=== PATIENT | female | born 1995 | race Caucasian/White ===

== ENCOUNTER → 2017-01-04 | Outpatient (REF) | payer OTHER | LOC: M SFHCCLAY 08:48 | PROVIDERS: ATTEND Family Medicine | DX: Z12.4 Encounter for screening for malignant neoplasm of cervix (principal) ==

== ENCOUNTER → 2017-04-18 | Outpatient (CLI) | payer OTHER ==
--- NOTE | 2017-04-18 15:19 | REP ---
Clinical: Dating and viability. Technique: Transabdominal first trimester obstetrical ultrasound with color Doppler evaluation. Findings: Intrauterine is identified. Castine rump length of 19 mm corresponds to 8 weeks 3 days gestational age. No cardiac activity is appreciated and findings are compatible with demise. Impression: Findings compatible with demise at 8 weeks 3 days gestational age. Signed by Jayjay Harris MD 04/18/2017 03:10 P
== END ==
LOC: M RAD 14:22
PROVIDERS: ATTEND Family Medicine
DX: N91.2 Amenorrhea, unspecified (principal)

== ENCOUNTER → 2017-04-26 | Outpatient (REF) | payer OTHER ==
[2017-04-26 17:35] LABS: PROLACTIN 20.7 NG/ML
== END ==
LOC: M SFHCCLAY 13:38
PROVIDERS: ATTEND Family Medicine
DX: O03.9 Complete or unspecified spontaneous abortion without complication (principal)

== ENCOUNTER → 2017-05-02 | Outpatient (REF) | payer OTHER ==
[2017-05-02 17:35] LABS: PROLACTIN 12.4 NG/ML
== END ==
LOC: M SFHCCLAY 12:06
PROVIDERS: ATTEND Family Medicine
DX: O03.9 Complete or unspecified spontaneous abortion without complication (principal)

== ENCOUNTER 2017-05-23 13:02 | Emergency (ER) | payer OTHER ==
[2017-05-23 17:31] LABS: BASO % 0.3 % (0.0-1.0); EOS # 0.1 10^3/uL (0.0-0.50); EOS % 0.6 % (0.0-3.0); HEMATOCRIT 43.4 % (36.0-47.0); HEMOGLOBIN 14.7 g/dl (12.0-16.0); IMMATURE GRANULOCYTE # 0.1 10^3/uL (0-0); IMMATURE GRANULOCYTE % 0.6 % (0-0); LYMPH # 2.6 10^3/uL (1.5-6.5); LYMPH % 25.3 % (24.0-44.0); MEAN CORPUSCULAR HEMOGLOBIN 30.9 pg (27.0-33.0); MEAN CORPUSCULAR HGB CONC 33.9 g/dl (32.0-36.5); MEAN CORPUSCULAR VOLUME 91.4 fl (80.0-96.0); MONO # 0.6 10^3/uL (0.0-0.8); MONO % 5.8 % (0.0-5.0); NEUTROPHILS # 6.9 10^3/uL (1.8-7.7); NEUTROPHILS % 67.4 % (36.0-66.0); PLATELET COUNT, AUTOMATED 269 10^3/uL (150-450); RED BLOOD COUNT 4.75 10^6/uL (4.00-5.40); WHITE BLOOD COUNT 10.3 10^3/uL (4.0-10.0)
[2017-05-23 17:37] LABS: APPEARANCE, URINE CLOUDY (CLEAR); BACTERIA, URINE AUTO 3+ (NEGATIVE); BILIRUBIN, URINE AUTO NEGATIVE (NEGATIVE); BLOOD, URINE BLOOD 3+ (NEGATIVE); COLOR, URINE RED (YELLOW); GLUCOSE, URINE (UA) AUTO NEGATIVE (NEGATIVE); KETONE, URINE AUTO NEGATIVE (NEGATIVE); LEUKOCYTE ESTERASE, URINE AUTO 2+ (NEGATIVE); MUCUS, URINE MODERATE (NEGATIVE); NITRITE, URINE AUTO NEGATIVE (NEGATIVE); PROTEIN, URINE AUTO 2+ mg/dL (NEGATIVE); RBC, URINE AUTO TNTC /HPF (0-3); SPECIFIC GRAVITY URINE AUTO 1.026 (1.002-1.035); SQUAMOUS EPITHELIAL CELL UR AU 12 /HPF (0-6); UROBILINOGEN, URINE AUTO 0.2 mg/dL (0.0-2.0); WBC, URINE AUTO 167 /HPF (0-3)
[2017-05-23 18:02] LABS: ANION GAP 11 MEQ/L (8-16); BLOOD UREA NITROGEN 12 MG/DL (7-18); CALCIUM LEVEL 8.6 MG/DL (8.5-10.1); CARBON DIOXIDE LEVEL 27 MEQ/L (21-32); CHLORIDE LEVEL 105 MEQ/L (98-107); CREATININE FOR GFR 0.74 MG/DL (0.55-1.02); GLOMERULAR FILTRATION RATE > 60.0 (>60); GLUCOSE, FASTING 79 MG/DL (70-105); HCG, SERUM QUANTITATIVE 31 MIU/ML; POTASSIUM SERUM 3.8 MEQ/L (3.5-5.1); SODIUM LEVEL 143 MEQ/L (136-145)
[2017-05-23] MEDS: NITROFURANTOIN (MACROBID) 100 MG CAP PO (19:15)
== END 2017-05-23 19:22 | disposition home or self-care (01) ==
LOC: M ED 13:02
DX: O03.9 Complete or unspecified spontaneous abortion without complication (principal); O23.40 Unspecified infection of urinary tract in pregnancy, unspecified trimester; Z88.1 Allergy status to other antibiotic agents; Z3A.00 Weeks of gestation of pregnancy not specified
CPT/HCPCS: 76856

== ENCOUNTER → 2017-05-26 | Outpatient (REF) | payer OTHER ==
[2017-05-26 09:03] LABS: FETAL SCREEN PROF. 1
== END ==
LOC: M SFHCCLAY 08:39
DX: N93.9 Abnormal uterine and vaginal bleeding, unspecified (principal)
CPT/HCPCS: J2790

== ENCOUNTER → 2017-07-28 | Outpatient (REF) | payer OTHER ==
[2017-07-29 11:14] LABS: BASO % 0.3 % (0.0-1.0); EOS % 0.4 % (0.0-3.0); HEMATOCRIT 39.4 % (36.0-47.0); HEMOGLOBIN 13.4 g/dl (12.0-16.0); IMMATURE GRANULOCYTE % 0.4 % (0-3.0); LYMPH # 2.3 10^3/uL (1.5-6.5); LYMPH % 23.9 % (24.0-44.0); MEAN CORPUSCULAR HEMOGLOBIN 30.7 pg (27.0-33.0); MEAN CORPUSCULAR VOLUME 90.4 fl (80.0-96.0); MONO # 0.5 10^3/uL (0.0-0.8); MONO % 4.8 % (0.0-5.0); NEUTROPHILS # 6.9 10^3/uL (1.8-7.7); NEUTROPHILS % 70.2 % (36.0-66.0); PLATELET COUNT, AUTOMATED 274 10^3/uL (150-450); RED BLOOD COUNT 4.36 10^6/uL (4.00-5.40); RED CELL DISTRIBUTION WIDTH 11.7 % (11.5-14.5); WHITE BLOOD COUNT 9.8 10^3/uL (4.0-10.0)
[2017-07-29 11:36] LABS: ALBUMIN/GLOBULIN RATIO 1.18 (1.00-1.93); ALKALINE PHOSPHATASE 57 U/L (45-117); ALT/SGPT 26 U/L (12-78); ANION GAP 8 MEQ/L (8-16); AST/SGOT 18 U/L (7-37); BILIRUBIN,TOTAL 0.2 MG/DL (0.2-1.0); BLOOD UREA NITROGEN 14 MG/DL (7-18); CALCIUM LEVEL 8.7 MG/DL (8.5-10.1); CARBON DIOXIDE LEVEL 27 MEQ/L (21-32); CHLORIDE LEVEL 106 MEQ/L (98-107); CHOLESTEROL LEVEL 189 MG/DL (<200); CHOLESTEROL RISK RATIO 3.098 (<5); CREATININE FOR GFR 0.76 MG/DL (0.55-1.30); FERRITIN 48 NG/ML (8-252); FREE T4 1.13 NG/DL (0.76-1.46); GLOMERULAR FILTRATION RATE > 60.0 (>60); GLUCOSE, FASTING 82 MG/DL (70-100); HDL CHOLESTEROL 61 MG/DL (>40); IRON (FE) 40 UG/DL (50-170); NON-HDL-C 128 MG/DL; PERCENT SATURATION 10.6 % (13.2-45.0); POTASSIUM SERUM 3.9 MEQ/L (3.5-5.1); SODIUM LEVEL 141 MEQ/L (136-145); TOTAL IRON BINDING CAPACITY 376 UG/DL (250-450); TOTAL PROTEIN 7.4 GM/DL (6.4-8.2); TRIGLYCERIDES LEVEL 95 MG/DL (<150)
[2017-07-29 12:22] LABS: TOTAL 25(OH) VITAMIN D 14.3 NG/ML (30.0-100.0)
== END ==
LOC: M SFHCCLAY 16:08
DX: R53.83 Other fatigue (principal); Z13.220 Encounter for screening for lipoid disorders; R61 Generalized hyperhidrosis
CPT/HCPCS: 83550

== ENCOUNTER → 2018-01-05 | Outpatient (REF) | payer OTHER ==
[2018-01-06 13:39] LABS: CHLAMYDIA DNA AMPLIFICATION NEGATIVE (NEGATIVE); GC DNA AMPLIFICATION NEGATIVE (NEGATIVE)
== END ==
LOC: M SFHCCLAY 14:31
DX: Z12.4 Encounter for screening for malignant neoplasm of cervix (principal)
CPT/HCPCS: 87591

== ENCOUNTER → 2018-01-30 | Outpatient (CLI) | payer OTHER | LOC: M CLY 09:47 | DX: M54.2 Cervicalgia (principal); M41.9 Scoliosis, unspecified | CPT/HCPCS: 72050 ==

== ENCOUNTER → 2018-05-31 | Outpatient (REF) | payer OTHER ==
[~2018-05-31] MED LIST: MACR100C43 PO
== END ==
LOC: M SFHCCLAY 17:13
PROVIDERS: ATTEND Nurse Practitioner Family
DX: J02.9 Acute pharyngitis, unspecified (principal)

== ENCOUNTER → 2018-09-14 | Outpatient (REF) | payer OTHER ==
[2018-09-14 19:31] LABS: ALBUMIN 4.1 GM/DL (3.2-5.2); ALT/SGPT 35 U/L (12-78); BILIRUBIN,TOTAL 0.4 MG/DL (0.2-1.0); BLOOD UREA NITROGEN 15 MG/DL (7-18); CALCIUM LEVEL 8.8 MG/DL (8.5-10.1); CARBON DIOXIDE LEVEL 29 MEQ/L (21-32); CHLORIDE LEVEL 104 MEQ/L (98-107); CHOLESTEROL LEVEL 193 MG/DL (<200); CHOLESTEROL RISK RATIO 3.784 (<5); CREATININE FOR GFR 0.83 MG/DL (0.55-1.30); FREE T4 0.98 NG/DL (0.76-1.46); GLOMERULAR FILTRATION RATE > 60.0 (>60); GLUCOSE, FASTING 81 MG/DL (70-100); HDL CHOLESTEROL 51 MG/DL (>40); LDL CHOLESTEROL 115.4 MG/DL (<100); NON-HDL-C 142 MG/DL; POTASSIUM SERUM 4.3 MEQ/L (3.5-5.1); SODIUM LEVEL 140 MEQ/L (136-145); TOTAL PROTEIN 7.3 GM/DL (6.4-8.2); TRIGLYCERIDES LEVEL 133 MG/DL (<150)
[2018-09-14 19:39] LABS: HEMOGLOBIN A1c 4.8 %
[2018-09-14 19:40] LABS: BASO % 0.2 % (0.0-1.0); EOS # 0.1 10^3/uL (0.0-0.50); EOS % 0.6 % (0.0-3.0); HEMATOCRIT 42.6 % (36.0-47.0); LYMPH # 1.9 10^3/uL (1.5-6.5); LYMPH % 18.8 % (24.0-44.0); MEAN CORPUSCULAR HEMOGLOBIN 30.8 pg (27.0-33.0); MEAN CORPUSCULAR HGB CONC 32.9 g/dl (32.0-36.5); MEAN CORPUSCULAR VOLUME 93.6 fl (80.0-96.0); MONO # 0.7 10^3/uL (0.0-0.8); MONO % 6.8 % (0.0-5.0); NEUTROPHILS # 7.5 10^3/uL (1.8-7.7); NEUTROPHILS % 73.2 % (36.0-66.0); PLATELET COUNT, AUTOMATED 253 10^3/uL (150-450); RED BLOOD COUNT 4.55 10^6/uL (4.00-5.40); WHITE BLOOD COUNT 10.3 10^3/uL (4.0-10.0)
== END ==
LOC: M SFHCCLAY 10:38
PROVIDERS: ATTEND Nurse Practitioner Family
DX: F41.8 Other specified anxiety disorders (principal); L68.0 Hirsutism; L70.9 Acne, unspecified; L30.9 Dermatitis, unspecified; E66.9 Obesity, unspecified

== ENCOUNTER → 2019-01-31 | Outpatient (CLI) | payer OTHER ==
--- NOTE | 2019-02-06 20:00 | SLEEPHOME ---
DATE OF PROCEDURE: 01/31/2019 Ordered by: Dr. Misael Magana Diagnostic home sleep testing was performed due to concern for the obstructive sleep apnea syndrome in this patient with a history of snoring. For testing, a nocturnal T3 respiratory monitoring device was used. Continuous record was made of pulse, oxygen saturation, airflow, chest, abdominal strain and body position. 9 hours and 59 minutes of data were reviewed. There were 6 hours and 55 minutes marked as time in bed. During the interval marked time in bed there only 11 respiratory events identified of 10 seconds in duration or greater for a respiratory event index of 1.6. There was snoring noted throughout the study. Baseline oxygen saturation was 91%. There was one brief artifactual change in the pulse ox probe, otherwise saturations remained 90% plus. Testing was performed in both the supine and nonsupine positions. IMPRESSION Normal diagnostic home sleep test with snoring.
== END ==
LOC: M SLEEP HO 09:55
PROVIDERS: ATTEND Internal Medicine Cardiovascular Disease
DX: R06.83 Snoring (principal)

== ENCOUNTER → 2019-04-16 | Outpatient (REF) | payer OTHER | LOC: M LABDRAWC 16:05 | PROVIDERS: ATTEND Internal Medicine Cardiovascular Disease | DX: I49.3 Ventricular premature depolarization (principal) ==

== ENCOUNTER → 2019-05-11 | Outpatient (CLI) | payer OTHER ==
--- NOTE | 2019-05-11 10:25 | REP ---
Right upper quadrant sonography: History: Abdominal bloating and discomfort. Question history of biliary pancreatitis. Comparison study: No comparison study. Findings: Scanning through the right upper quadrant of the abdomen demonstrates a normal sized, thin-walled gallbladder without evidence of stone or polyp. Common bile duct is normal measuring 0.4 cm in greatest diameter. No focal liver lesion is seen. Liver size is normal. No pancreatic abnormality is observed. No right renal abnormality is seen. There is no evidence of ascites. The right kidney measures 11.4 x 6.2 x 4.4 cm. Impression: Negative right upper quadrant sonography. Electronically Signed by Hector Apple MD 05/11/2019 10:16 A
== END ==
LOC: M RAD 08:16
PROVIDERS: ATTEND Internal Medicine Gastroenterology
DX: R10.13 Epigastric pain (principal)

== ENCOUNTER → 2019-11-27 | Outpatient (REF) | payer OTHER ==
[2019-11-27 17:28] LABS: HEMATOCRIT 39.5 % (36.0-47.0); HEMOGLOBIN 13.2 g/dl (12.0-15.5); MEAN CORPUSCULAR HEMOGLOBIN 31.2 pg (27.0-33.0); MEAN CORPUSCULAR HGB CONC 33.4 g/dl (32.0-36.5); MEAN CORPUSCULAR VOLUME 93.4 fl (80.0-96.0); PLATELET COUNT, AUTOMATED 237 10^3/uL (150-450); RED BLOOD COUNT 4.23 10^6/uL (4.00-5.40); WHITE BLOOD COUNT 12.8 10^3/uL (4.0-10.0)
[2019-11-27 17:44] LABS: GLUCOSE CHALLENGE TEST 1 HOUR 110 MG/DL (LESS THAN 140)
[2019-11-27 18:37] LABS: HEMOGLOBIN A1c 4.7 %
[2019-11-27 19:39] LABS: CHLAMYDIA DNA AMPLIFICATION NEGATIVE (NEGATIVE); GC DNA AMPLIFICATION NEGATIVE (NEGATIVE)
[2019-11-28 10:52] LABS: HEPATITIS C VIRUS ABY INDEX 0.1 INDEX (<0.8); HIV 1&2 SCREEN CENTAUR NEGATIVE (NEGATIVE)
== END ==
LOC: M PLALAB 13:56
PROVIDERS: ATTEND Advanced Practice Midwife
DX: Z34.01 Encounter for supervision of normal first pregnancy, first trimester (principal)

== ENCOUNTER → 2020-02-20 | Outpatient (CLI) | payer OTHER ==
--- NOTE | 2020-02-27 09:55 | REP ---
OBSTETRIC SONOGRAPHY HISTORY: Supervision of for anatomy. FINDINGS: Scanning through the gravid uterus demonstrates a single intrauterine gestation in a transverse, head to the maternal right lie. Placenta is anterior grade 0 without evidence of previa. Amniotic fluid is subjectively normal. heart rate is recorded at 149 beats per minute. Three vessel umbilical cord is observed. Exam quality is inhibited to some degree by maternal body habitus. Facial profile, nose and lips, four chamber heart and outflow tract views are less than optimally seen due to transverse lie and maternal body habitus. The following anatomic structures are identified and felt to be unremarkable: cranium and intracranial anatomy, diaphragm, left-sided stomach, right and left kidney, urinary bladder, spine, upper and lower extremities. BIOMETRY CHART: BPD 4.6 cm 19 weeks 6 days Head circumference 16.9 cm 19 weeks 4 days Abdominal circumference 13.9 cm 19 weeks 2 days Femur length 3.0 cm 19 weeks 1 day Humeral length 2.9 cm 19 weeks 2 days AC/HC ratio 1.22 Normal Cephalic index 0.76 Normal Estimated weight 282 grams, 0 pounds 9 ounces, 37th percentile for 19 weeks 3 days. IMPRESSION: Viable single intrauterine gestation at 19 weeks 3 days by todays composite sonographic criteria. Estimated date of delivery (TRINIDAD) by todays sonography 07/13/2020. anatomic survey is less than complete as above MTDD
== END ==
LOC: M WHC 13:37
PROVIDERS: ATTEND Advanced Practice Midwife
DX: Z34.82 Encounter for supervision of other normal pregnancy, second trimester (principal); Z3A.19 19 weeks gestation of pregnancy

== ENCOUNTER → 2020-03-11 | Outpatient (CLI) | payer OTHER ==
--- NOTE | 2020-03-11 11:22 | REP ---
INDICATION: F/U ANATOMY. COMPARISON: 02/20/2020 TECHNIQUE: Real-time sonographic evaluation of the gravid uterus performed. FINDINGS: Scanning through the gravid uterus demonstrates a viable single intrauterine gestation in cephalic lie. Estimated gestational age is 22 weeks 2 days, EDC 05/12/2021. Today's measurements indicate appropriate growth. motion is observed and heart rate is recorded at 151 beats per minute. An anterior placenta is seen, grade 2, without evidence of placenta previa. Oval hypoechoic area in the placenta measures 3.8 x 1.3 x 3.2 cm likely a venous Pathak. Amniotic fluid is subjectively normal. Closed cervical length is measured at 3.3 cm transabdominally. No extrauterine abnormality is observed. The following anatomic structures are identified and felt to be sonographically unremarkable: cranium, nose and lips, right ventricular outflow tract , left-sided stomach, three-vessel umbilical cord, kidneys and bladder, spine. Once again profile is not well seen. Four-chamber heart and left ventricular outflow tract are documented, there are couple of echogenic foci in the left ventricle likely related to chordae tendineae. Biometry chart: BPD: 56 mm, 23 weeks 0 days, 69th percentile. HC: 207 mm, 22 weeks 5 days, 64th percentile AC 176 mm: 22 weeks 3 days, 54th percentile Femur length: 39 mm, 22 weeks 3 days, 53rd percentile HC to AC ratio: 1.18, normal range 1.04-1.23. Estimated weight: 509 G, 54th percentile. IMPRESSION: Viable single intrauterine gestation at 22 weeks 2 days by today's composite sonographic criteria. Anatomy as above. <Electronically signed by Jeremy Natarajan > 03/11/20 [id number]
== END ==
LOC: M WHC 09:11
PROVIDERS: ATTEND Advanced Practice Midwife
DX: Z34.02 Encounter for supervision of normal first pregnancy, second trimester (principal); Z3A.22 22 weeks gestation of pregnancy

== ENCOUNTER → 2020-04-08 | Outpatient (CLI) | payer OTHER ==
--- NOTE | 2020-04-09 04:22 | REP ---
INDICATION: F/U ANATOMY COMPARISON: 03/11/2020 TECHNIQUE: Transabdominal obstetrical ultrasound with color Doppler evaluation. FINDINGS: Examination demonstrates a single live intrauterine in cephalic presentation. motion is identified by technologist. Placenta is noted anterior and grade 3 with scattered echogenic foci suggesting calcifications. No evidence for placenta previa or abruption. Amniotic fluid volume is normal. Cervix appears closed. Gestational age by LMP 26 weeks 2 days with TRINIDAD 07/13/2020. Gestational age by current measurements 26 weeks 3 days with TRINIDAD 07/12/2020. FHR equals 150 beats per minute. Estimated weight 1017 grams (69thpercentile). Anatomical assessment demonstrates normal appearance to the facial features. Small echogenic foci within the left cardiac ventricle are identified which may represent prominent chordae tendineae. IMPRESSION: 1. Grade 3 placenta with scattered placental calcifications suggested. Previously noted venous Pathak currently measures approximately 1.7 x 0.8 x 0.9 cm. 2. Small echogenic foci within the left cardiac ventricle again identified and likely represent prominent chordae tendinae. <Electronically signed by Jayjay Harris > 04/09/20 [id number]
== END ==
LOC: M WHC 11:03
PROVIDERS: ATTEND Advanced Practice Midwife
DX: Z34.82 Encounter for supervision of other normal pregnancy, second trimester (principal); Z3A.26 26 weeks gestation of pregnancy

== ENCOUNTER → 2020-05-01 | Outpatient (REF) | payer OTHER ==
[2020-05-01 13:52] LABS: HEMATOCRIT 36.6 % (36.0-47.0); MEAN CORPUSCULAR HEMOGLOBIN 32.2 pg (27.0-33.0); MEAN CORPUSCULAR HGB CONC 32.8 g/dl (32.0-36.5); MEAN CORPUSCULAR VOLUME 98.1 fl (80.0-96.0); PLATELET COUNT, AUTOMATED 195 10^3/uL (150-450); RED BLOOD COUNT 3.73 10^6/uL (4.00-5.40); WHITE BLOOD COUNT 11.7 10^3/uL (4.0-10.0)
== END ==
LOC: M PLALAB 09:11
PROVIDERS: ATTEND Advanced Practice Midwife
DX: Z34.82 Encounter for supervision of other normal pregnancy, second trimester (principal); Z3A.00 Weeks of gestation of pregnancy not specified
CPT/HCPCS: 36415; 82950; 85027; 86850; 86900; 86901; J2790

== ENCOUNTER → 2020-06-10 | Outpatient (REF) | payer OTHER | LOC: M PLALAB 15:12 | PROVIDERS: ATTEND Obstetrics & Gynecology | DX: Z3A.35 35 weeks gestation of pregnancy (principal) ==

== ENCOUNTER → 2020-06-12 | Outpatient (REF) | payer OTHER | LOC: M PLALAB 10:52 | PROVIDERS: ATTEND Obstetrics & Gynecology | DX: Z3A.35 35 weeks gestation of pregnancy (principal) ==

== ENCOUNTER 2020-06-25 19:22 | Inpatient (IN) | payer OTHER ==
[2020-06-25] VITALS (12 sets, daily range): BP systolic 125–186; BP diastolic 71–105
[~2020-06-25] VITALS: Ht 165.1 cm; Wt 106.5 kg
[2020-06-25] MEDS ORDERED: LACTATED RINGER'S 1000 ML IV STA (20:25)
[2020-06-25] MEDS ORDERED: PENICILLIN G POTASSIUM IV 5 MU in D5W MINI-BAG PLUS 100 ML IV STA (20:25)
[2020-06-25] MEDS ORDERED: LR 1,000 ML IV SCH (20:25)
--- OUTSIDE RECORDS SUMMARY | 2020-06-25 20:26 | CCD ---
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 Role Phone EliuConor Unavailable PROBLEMS Type Condition ICD9-CM Code [id number] Code Onset Dates Condition S tatus SNOMED Code Notes Problem Eczema, unspecified type L30.9 Active 6799352 0 Problem Acne vulgaris L70.0 Active 67788124 Problem Folliculitis L73.9 Active 42968298 Problem Vitamin D deficiency E55.9 Active 59503912 Problem Elevated LDL cholesterol level E78.00 Active 4 33626875 Problem Premature ventricular contraction I49.3 Active 91862051 Problem Obesity complicating in first trimester O99.21 1 Active Problem Vaginal bleeding N93.9 Active 793032348 Problem Supervision of other normal Z34.80 Ac tive 351058805 Problem Amenorrhea N91.2 Active 31806178 Problem Depression with anxiety F41.8 Active 70063871 Problem Obesity (BMI 30.0-34.9) E66.9 Active 76673293 1 Problem Episodic tension-type headache, not intractable G4 4.219 Active 419018829 Problem Cardiac arrhythmia, unspecified cardiac arrhythmia type I49.9 Active 828107683 ALLERGIES Allergen (clinical drug ingredient) Drug/Non Drug Allergy do cumented on EMR Reaction Allergy Type Onset Date Status sulfamethoxazole / trimethoprim Bactrim([facility] Code:[address]-53) Rash Drug Allergy Active ENCOUNTERS from 1993 to 2020-06-09 Encounter Location Date Provider Diagnosis [facility] [address] [place] [address] 13 May Conor Nowak Unspecified nonsuppurative otitis media, left ear H65.92 IMMUNIZATIONS Vaccine Route Administration Date Status RHo (D) Immune Globulin 300mcg/1.5mL (RhoGAM) IM Intramuscular J an 2020 Administered RHo (D) Immune Globulin 300mcg/1.5mL (RhoGAM) IM Intramuscular J an 2017 Administered Influenza (6mo & up) Fluzone Unknown Apr 04, 2017 Ref used SOCIAL HISTORY Tobacco Use: Social History Observation Description Date Details (start date - stop date) Never Smoker Sex Assigned At : Social History Observation Description Sex Assigned At Unknown Education: Question Answer Notes Level of Education: Finished High School Audit Question Answer Notes Total Score: 1 Interpretation: Alcohol Education Language: Question Answer Notes Languages spoken: Barbadian Jewish: Question Answer Notes Jewish 99 Other Sexual Hx: Question Answer Notes Had sex in the last 12 months (vaginal, oral, or anal)? Yes with Men only Drug and Alcohol Question Answer Notes Total Score: 0 Interpretation: No problems reported Alcohol Screening: Question Answer Notes Did you have a drink containing alcohol in the past year? Ye s Points 2 Interpretation Negative How often did you have six or more drinks on one occas ion in the past year? Never (0 points) How many drinks did you have on a typica l day when you were drinking in the past year? 1 or 2 (0 points) How often did you have a drink containing alcohol in t he past year? Two to four times a month (2 points) BMI Care Goal Follow-Up Question Answer Notes Above Normal BMI Follow-Up Dietary management educatio n, guidance, and counseling Tobacco Use: Question Answer Notes Are you a: never smoker REASON FOR REFERRAL No Information VITAL SIGNS Weight 227 lbs May, Height 66 in May, BMI 36.63 kg/m2 May, Heart Rate 114 /min May, Respiratory Rate 18 /min May, Temperature 98.5 degrees Fahrenheit May, Oximetry 99 May, Blood pressure systolic 119 mm Hg May, Blood pressure diastolic 79 mm Hg May, MEDICATIONS Medication SIG (Take, Route, Frequency, Duration) Notes Start Da te End Date Status Omeprazole 20 MG 1 capsule 30 minutes before morning meal Orally Once a day for 30 day(s) Apr, Not-Taking Vitamins 28-0.8 MG 1 tablet Orally Once a day Active PROCEDURES No Information RESULTS No Results REASON FOR VISIT left ear pain MEDICAL (GENERAL) HISTORY Type Description Date Medical History 10/2015 Medical History Spontaneous 03/2017 Medical History eczema Surgical History No know Surgical history Hospitalization History [facility] ER-Cellulitis [facility] face 03/11/16 [facility] History [facility] abd pain/ fever 09/2017 Hospitalization History pancreatitis Goals Section No Information Health Concerns No Information MEDICAL EQUIPMENT No Information MENTAL STATUS No Information FUNCTIONAL STATUS No Information ASSESSMENTS Encounter Date Diagnosis Assessment Notes Treatment Notes Treatm ent Clinical Notes May, Unspecified nonsuppurative o titis media, left ear (ICD-10 - H65.92) You have serous otitis media at this time. This condition is usually caused from postnasal drip from environmental triggers, irritants, or sickness. The eustachian tube pulls fluid from your throat which then does not drain like it is supposed to and the fuid becomes trapped behind the eardrum. Symptoms include pressure, pain, pain that radiates into the throat, decreased hearing, and sometimes dizziness with movement of the head. Treatment involves addressing the underlying problem. Please consult the bqoj-hjx-dezghat medication list that was given to bite or senior software test engineer to see what decongestant medication you can take to help with the problem. Please don't take a medication that is not on the list without consulting a healthcare provider. May, Other Medication/s di scussed with patient and questions answered. RTC as needed for worsening or unresolved symptoms. Patient states understanding and agreement with this plan. PLAN OF TREATMENT Treatment Notes Assessment Notes Clinical Notes Unspecified nonsuppurative otitis media, left ear You have serous otitis media at this time. This condition is usually caused from postnasal drip from environmental triggers, irritants, or sickness. The eustachian tube pulls fluid from your throat which then does not drain like it is supposed to and the fuid becomes trapped behind the eardrum. Symptoms include pressure, pain, pain that radiates into the throat, decreased hearing, and sometimes dizziness with movement of the head. Treatment involves addressing the underlying problem. Please consult the ixdz-osv-hmturpm medication list that was given to bite or senior software test engineer to see what decongestant medication you can take to help with the problem. Please don't take a medication that is not on the list without consulting a healthcare provider. Next Appt Details 2 - 3 Days unless improving Reason: Provider Name:Lisha Contreras, 2020-05 10:00:00 AM, [address] [place], [address], Insurance Providers Payer Name Payer Address Payer Phone Insured Name Patient Relati onship to Insured Coverage Start Date Coverage End Date [facility] [employer] [facility] [address] [facility] [phone] MIKE GREGORY self
--- OUTSIDE RECORDS SUMMARY | 2020-06-25 20:26 | CCD ---
Author Author [facility] Organization [facility] Address Unknown Phone Unavailable Care Team Providers Care Equipment Tech Name Role Phone Radha Ortega Unavailable PROBLEMS Type Condition ICD9-CM Code [id number] Code Onset Dates Condition S tatus SNOMED Code Notes Problem Eczema, unspecified type L30.9 Active 0510036 0 Problem Acne vulgaris L70.0 Active 81594391 Problem Folliculitis L73.9 Active 61204038 Problem Vitamin D deficiency E55.9 Active 26959058 Problem Elevated LDL cholesterol level E78.00 Active 4 25939392 Problem Premature ventricular contraction I49.3 Active 37592433 Problem Obesity complicating in first trimester O99.21 1 Active Problem Vaginal bleeding N93.9 Active 624429465 Problem Supervision of other normal Z34.80 Ac tive 714292906 Problem Amenorrhea N91.2 Active 27375916 Problem Depression with anxiety F41.8 Active 79030094 Problem Obesity (BMI 30.0-34.9) E66.9 Active 45274891 1 Problem Episodic tension-type headache, not intractable G4 4.219 Active 973926529 Problem Cardiac arrhythmia, unspecified cardiac arrhythmia type I49.9 Active 268411472 ALLERGIES Allergen (clinical drug ingredient) Drug/Non Drug Allergy do cumented on EMR Reaction Allergy Type Onset Date Status sulfamethoxazole / trimethoprim Bactrim([facility] Code:[address]-52) Rash Drug Allergy Active ENCOUNTERS from 1993 to 2020-04-01 Encounter Location Date Provider Diagnosis [facility] [address] [place] [address] Feb, Radha Vallandigham 21 weeks gestatio n of Z3A.21 ; Disease of nervous system affecting in second trimester O99.352 and Tension headache G44.209 IMMUNIZATIONS Vaccine Route Administration Date Status RHo [...] Education Language: Question Answer Notes Languages spoken: Yoruba Denominational: Question Answer Notes Denominational 99 Other Sexual Hx: Question Answer Notes [...] FOR REFERRAL No Information VITAL SIGNS Weight 212 lbs Feb, Height 66 in Feb, BMI 34.218 kg/m2 Feb, Blood pressure systolic 126 mm Hg Feb, Blood pressure diastolic 78 mm Hg Feb, MEDICATIONS Medication SIG (Take, Route, Frequency, Duration) Start Date En d Date Status Vitamins 28-0.8 MG 1 tablet Orally Once a day Active PROCEDURES No Information RESULTS Component Value Reference Range WWBC OBS FOLLOW UP OR REPEAT Reviewed date:03/12/2020 08:25:29 Interpretation: Performing Lab:[facility],[address]], ,[place] [address] REASON FOR VISIT 4 WK PN MEDICAL (GENERAL) HISTORY Type Description Date Medical History 10/2015 Medical History Spontaneous 03/2017 Medical History eczema Surgical History No Surgical history information Hospitalization History [facility]-Cellulitis [facility] face 03/11/16 Hospitalization History [facility]- abd pain/ fever 09/2017 Hospitalization History pancreatitis Goals Section No Information Health Concerns No Information MEDICAL EQUIPMENT No Information MENTAL STATUS No Information FUNCTIONAL STATUS No Information ASSESSMENTS Encounter Date Diagnosis Notes Feb, Disease of nervous system af fecting in second trimester (ICD-10 - O99.352) Feb, 21 weeks gestation of (ICD-10 - Z3A.21) Feb, Tension headache (ICD-10 - G44.209) PLAN OF TREATMENT Next Appt Details 4 Weeks Reason:return ob Provider Name:Aracely Carcamo 2020-04-03 09:00:00 AM, [address] [place], [address], Follow Up:4 Weeksreturn ob Insurance Providers Payer Name Payer Address Payer Phone Insured Name Patient Relati onship to Insured Coverage Start Date Coverage End Date [facility] COMM[facility] PLAN [facility] [address] [facility] [phone] MIKE GREGORY self
--- OUTSIDE RECORDS SUMMARY | 2020-06-25 20:26 | CCD ---
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 Role Phone Effie Lomas Unavailable PROBLEMS Type Condition ICD9-CM Code [id number] Code Onset Dates Condition S tatus SNOMED Code Notes Problem Eczema, unspecified type L30.9 Active 7409235 0 Problem Acne vulgaris L70.0 Active 02789560 Problem Folliculitis L73.9 Active 40008983 Problem Vitamin D deficiency E55.9 Active 17708252 Problem Elevated LDL cholesterol level E78.00 Active 4 04282923 Problem Premature ventricular contraction I49.3 Active 86514597 Problem Obesity complicating in first trimester O99.21 1 Active Problem Vaginal bleeding N93.9 Active 645412976 Problem Supervision of other normal Z34.80 Ac tive 705906848 Problem Amenorrhea N91.2 Active 97593037 Problem Depression with anxiety F41.8 Active 89091554 Problem Obesity (BMI 30.0-34.9) E66.9 Active 48833988 1 Problem Episodic tension-type headache, not intractable G4 4.219 Active 153647032 Problem Cardiac arrhythmia, unspecified cardiac arrhythmia type I49.9 Active 711009877 ALLERGIES Allergen (clinical drug ingredient) Drug/Non Drug Allergy do cumented on EMR Reaction Allergy Type Onset Date Status sulfamethoxazole / trimethoprim Bactrim([facility] Code:[address]-30) Rash Drug Allergy Active ENCOUNTERS from 1993 to 2020-06-04 Encounter Location Date Provider Diagnosis [facility] [address] [place] [address] May Effie Lomas IMMUNIZATIONS Vaccine Route Administration Date Status RHo [...] Education Language: Question Answer Notes Languages spoken: Persian Mormon: Question Answer Notes Mormon 99 Other Sexual Hx: Question Answer Notes [...] REASON FOR REFERRAL No Information VITAL SIGNS No information MEDICATIONS Medication SIG (Take, Route, Frequency, Duration) Notes Start Da te End Date Status Omeprazole 20 MG 1 capsule 30 minutes before morning meal Orally Once a day for 30 day(s) Apr, Not-Taking Vitamins 28-0.8 MG 1 tablet Orally Once a day Active PROCEDURES No Information RESULTS No Results REASON FOR VISIT same day MEDICAL (GENERAL) HISTORY Type Description Date Medical History 10/2015 Medical History Spontaneous 03/2017 Medical History eczema Surgical History No know Surgical history Hospitalization History [facility] ER-Cellulitis of face 03/11/16 Hospitalization History [facility] abd pain/ fever 09/2017 Hospitalization History pancreatitis Goals Section No Information Health Concerns No Information MEDICAL EQUIPMENT No Information MENTAL STATUS No Information FUNCTIONAL STATUS No Information ASSESSMENTS No Information PLAN OF TREATMENT Next Appt Details Provider Name:Lisha Contreras, 2020-05 10:00:00 AM, [address] [place], [address], Insurance Providers Payer Name Payer Address Payer Phone Insured Name Patient Relati onship to Insured Coverage Start Date Coverage End Date [facility] [facility] [address] [facility] [phone] MIKE GREGORY self
--- OUTSIDE RECORDS SUMMARY | 2020-06-25 20:26 | CCD ---
Author Author [facility] Organization [facility] Address Unknown Phone Unavailable Care Team Providers Care Research Biostatistician Name Role Phone Lisha Contreras Unavailable PROBLEMS Type Condition ICD9-CM Code [id number] Code Onset Dates Condition S tatus W/U Status Risk SNOMED Code Notes Problem Folliculitis L73.9 Active confirmed 4219330 6 Problem Eczema, unspecified type L30.9 Active confirmed 70825582 Problem Amenorrhea N91.2 Active confirmed 35813794 Problem Acne vulgaris L70.0 Active confirmed 074197 00 Problem Elevated LDL cholesterol level E78.00 Active confir med 079758911 Problem Vaginal bleeding N93.9 Active confirmed 289 471108 Problem Depression with anxiety F41.8 Active confirmed 64123351 Problem Obesity (BMI 30.0-34.9) E66.9 Active confirmed 531714070 Problem Cardiac arrhythmia, unspecified cardiac arrhythmia type I49.9 Active confirmed 445550201 Problem GERD (gastroesophageal reflux disease) K21.9 A ctive confirmed 604893633 Problem Premature ventricular contraction I49.3 Active con firmed 55327108 Problem Obesity E66.9 Active confirmed 897572553 Problem Vitamin D deficiency E55.9 Active confirmed 57570181 Problem Episodic tension-type headache, not intractable G4 4.219 Active confirmed 310851225 Problem Supervision of other normal Z34.80 Ac tive confirm 629262485 Problem Obesity complicating in first trimester O99.211 Active confirmed Problem Obesity complicating in third trimester O99.213 Active confirmed ALLERGIES Allergen (clinical drug ingredient) Drug/Non Drug Allergy do cumented on EMR Reaction Allergy Type Onset Date Status sulfamethoxazole / trimethoprim Bactrim(NDC Code:[address]-26) Rash Drug Allergy Active ENCOUNTERS from 1993 to 2020-06-23 Encounter Location Date Provider Diagnosis [facility] [place] [address] May, Lisha Contreras 35 weeks gestation o f Z3A.35 ; Obesity complicating in third trimester O99.213 ; Obesity E66.9 ; GERD (gastroesophageal reflux disease) K21.9 and Diseases of the digestive system com plicating , third trimester O99.613 IMMUNIZATIONS Vaccine Route Administration Date Status RHo [...] History Observation Description Sex Assigned At Unknown Audit Question Answer Notes Total Score: 1 Interpretation: Alcohol Education Language: Question Answer Notes Languages spoken: Vietnamese Drug and Alcohol Question Answer Notes Total [...] FOR REFERRAL No Information VITAL SIGNS Weight 228 lbs May, Height 66 in May, BMI 36.8 kg/m2 May, Blood pressure systolic 120 mm Hg May, Blood pressure diastolic 82 mm Hg May, MEDICATIONS Medication SIG (Take, Route, Frequency, Duration) Notes Start Da te End Date Status Omeprazole 20 MG 1 capsule 30 minutes before morning meal Orally Once a day for 30 day(s) Apr, Active Vitamins 28-0.8 MG 1 tablet Orally Once a day Active PROCEDURES No Information RESULTS Component Value Reference Range GROUP B STREP CULTURE Reviewed date:06/16/2020 08:18:10 Interpretation: Performing Lab:[facility], [facility] [address] [facility] [address] , ,[place] [address] REASON FOR VISIT 2 WK PN MEDICAL (GENERAL) HISTORY Type Description Date Medical History 10/2015 Medical History Spontaneous 03/2017 Medical History eczema Surgical History No know Surgical history Hospitalization History [facility] ER-Cellulitis of face 03/11/16 Hospitalization History [facility]- abd pain/ fever 09/2017 Hospitalization History pancreatitis Goals Section No Information Health Concerns No Information MEDICAL EQUIPMENT No Information MENTAL STATUS No Information FUNCTIONAL STATUS No Information ASSESSMENTS Encounter Date Diagnosis Assessment Notes Treatment Notes Treatm ent Clinical Notes May, 35 weeks gestation of (ICD-10 - Z3A.35 ) May, Obesity complicating pregnan cy in third trimester (ICD-10 - O99.213) May, Obesity (ICD-10 - E66.9) May, GERD (gastroesophageal reflux disease) (ICD-10 - K21.9) May, Diseases of the digestive sy stem complicating , third trimester (ICD-10 - O99.613) PLAN OF TREATMENT Medication Medication Name Sig Start Date Stop Date Omeprazole 20 MG 1 capsule 30 minutes before morning meal Orally Once a day for 30 day(s) Apr, Next Appt Details 2 Weeks Reason:PN Provider Name:Aracely Carcamo, 2020-06-26 02:20:00 PM, [address] [place], [address], Follow Up:2 WeeksPN Insurance Providers Payer Name Payer Address Payer Phone Insured Name Patient Relati onship to Insured Coverage Start Date Coverage End Date [employer] [facility] [address] [facility] [address] MIKE GREGORY self
--- OUTSIDE RECORDS SUMMARY | 2020-06-25 20:26 | CCD ---
Author Author [facility] Organization [facility] Address Unknown Phone Unavailable Care Team Providers Care Patient Care Manager Name Role Phone Kavon Chalino Unavailable PROBLEMS Type Condition ICD9-CM Code [id number] Code Onset Dates Condition S tatus SNOMED Code Notes Problem Eczema, unspecified type L30.9 Active 7737596 0 Problem Acne vulgaris L70.0 Active 54016848 Problem Folliculitis L73.9 Active 22672558 Problem Vitamin D deficiency E55.9 Active 61229921 Problem Elevated LDL cholesterol level E78.00 Active 4 53627600 Problem Premature ventricular contraction I49.3 Active 57033459 Problem Obesity complicating in first trimester O99.21 1 Active Problem Vaginal bleeding N93.9 Active 020948321 Problem Supervision of other normal Z34.80 Ac tive 250583476 Problem Amenorrhea N91.2 Active 80331157 Problem Depression with anxiety F41.8 Active 79372705 Problem Obesity (BMI 30.0-34.9) E66.9 Active 87365200 1 Problem Episodic tension-type headache, not intractable G4 4.219 Active 915722733 Problem Cardiac arrhythmia, unspecified cardiac arrhythmia type I49.9 Active 275750180 ALLERGIES Allergen (clinical drug ingredient) Drug/Non Drug Allergy do cumented on EMR Reaction Allergy Type Onset Date Status sulfamethoxazole / trimethoprim Bactrim[place] [place] Code:[address]-10) Rash Drug Allergy Active ENCOUNTERS from 1993 to 2020-05-14 Encounter Location Date Provider Diagnosis [facility] [address] [place] [phone] Apr, Chalino Jacobson Encounter for superv ision of other normal in third trimester Z34.83 and 31 weeks gestation of Z3A.31 IMMUNIZATIONS Vaccine Route Administration Date Status RHo [...] 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 Yes with Men only Drug and Alcohol Question Answer Notes Interpretation: No problems reported Total Score: 0 Alcohol Screening: Question Answer Notes Did you [...] FOR REFERRAL No Information VITAL SIGNS Weight 220.0 lbs Apr, Weight-kg 99.79 kg Apr, Height 66 in Apr, BMI 35.509 kg/m2 Apr, Blood pressure systolic 112 mm Hg Apr, Blood pressure diastolic 62 mm Hg Apr, MEDICATIONS Medication SIG (Take, Route, Frequency, Duration) Notes Start Da te End Date Status Vitamins 28-0.8 MG 1 tablet Orally Once a day Active Omeprazole 20 MG 1 capsule 30 minutes before morning meal Orally Once a day for 30 day(s) Apr, Active PROCEDURES No Information RESULTS No Results REASON FOR VISIT 2WK PN MEDICAL (GENERAL) HISTORY Type Description Date Medical History 10/2015 Medical History Spontaneous 03/2017 Medical History eczema Surgical History No know Surgical history Hospitalization History [facility] ER-Cellulitis of face 03/11/16 Hospitalization History [facility]- abd pain/ fever 09/2017 Hospitalization History pancreatitis Goals Section No Information Health Concerns No Information MEDICAL EQUIPMENT No Information MENTAL STATUS No Information FUNCTIONAL STATUS No Information ASSESSMENTS Encounter Date Diagnosis Assessment Notes Treatment Notes Treatm ent Clinical Notes Apr, Encounter for supervision of other normal in third trimester (ICD-10 - Z34.83) Apr, 31 weeks gestation of (ICD-10 - Z3A.31 ) PLAN OF TREATMENT Medication Medication Name Sig Start Date Stop Date Omeprazole 20 MG 1 capsule 30 minutes before morning meal Orally Once a day for 30 day(s) Apr, Next Appt Details 2 Weeks Reason: Provider Name:Aracely Carcamo, 2020-05-29 10:40:00 AM, [address] [place], [address], Insurance Providers Payer Name Payer Address Payer Phone Insured Name Patient Relati onship to Insured Coverage Start Date Coverage End Date [facility] COMMUN[facility] PLAN [facility] [address] [facility] [address] MIKE GREGORY self
--- OUTSIDE RECORDS SUMMARY | 2020-06-25 20:26 | CCD ---
Author Author [facility] Organization [facility] Address Unknown Phone Unavailable Care Team Providers Care Sprinkler Fitter Name Role Phone Aracely Carcamo Unavailable PROBLEMS Type Condition ICD9-CM Code [id number] Code Onset Dates Condition S tatus SNOMED Code Notes Problem Eczema, unspecified type L30.9 Active 2685467 0 Problem Acne vulgaris L70.0 Active 97659333 Problem Folliculitis L73.9 Active 48266438 Problem Vitamin D deficiency E55.9 Active 65168607 Problem Elevated LDL cholesterol level E78.00 Active 4 93275989 Problem Premature ventricular contraction I49.3 Active 68014779 Problem Obesity complicating in first trimester O99.21 1 Active Problem Vaginal bleeding N93.9 Active 307771187 Problem Supervision of other normal Z34.80 Ac tive 730913795 Problem Amenorrhea N91.2 Active 31601451 Problem Depression with anxiety F41.8 Active 25961745 Problem Obesity (BMI 30.0-34.9) E66.9 Active 18329322 1 Problem Episodic tension-type headache, not intractable G4 4.219 Active 933549585 Problem Cardiac arrhythmia, unspecified cardiac arrhythmia type I49.9 Active 283168082 ALLERGIES Allergen (clinical drug ingredient) Drug/Non Drug Allergy do cumented on EMR Reaction Allergy Type Onset Date Status sulfamethoxazole / trimethoprim Bactrim([facility] Code:[address]-03) Rash Drug Allergy Active ENCOUNTERS from 1993 to 2020-06-04 Encounter Location Date Provider Diagnosis [facility] [address] [place] [phone] May, Aracely Carcamo 33 weeks gestation o f Z3A.33 ; Encounter for prophylactic administration of RhoGAM Z29.13 and 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, third trimester, not applicable or unspecified O36.0130 IMMUNIZATIONS Vaccine Route Administration Date Status RHo [...] 1 Language: Question Answer Notes Languages spoken: Lithuanian Taoist: Question Answer Notes Taoist 99 Other Sexual Hx: Question Answer Notes [...] FOR REFERRAL No Information VITAL SIGNS Weight 227.4 lbs May, Height 66 in May, BMI 36.703 kg/m2 May, Blood pressure systolic 124 mm Hg May, Blood pressure diastolic 70 mm Hg May, MEDICATIONS Medication SIG (Take, Route, Frequency, Duration) Notes Start Da te End Date Status Omeprazole 20 MG 1 capsule 30 minutes before morning meal Orally Once a day for 30 day(s) Apr, Not-Taking Vitamins 28-0.8 MG 1 tablet Orally Once a day Active PROCEDURES from 1993 to 2020-06-04 Procedure Date Ordered Result Body Site Injection: RhoGAM 300mcg/1.5mL IM (Rho [D] Immune Globulin H uman) 2020-05-29 N/A RESULTS No Results REASON FOR VISIT 2WK PN MEDICAL (GENERAL) HISTORY Type Description Date Medical History 10/2015 Medical History Spontaneous 03/2017 Medical History eczema Surgical History No know Surgical history Hospitalization History [facility] ER-Cellulitis of face 03/11/16 Hospitalization History [facility]- abd pain/ fever 09/2017 Hospitalization History pancreatitis Goals Section No Information Health Concerns No Information MEDICAL EQUIPMENT No Information MENTAL STATUS No Information FUNCTIONAL STATUS No Information ASSESSMENTS Encounter Date Diagnosis Assessment Notes Treatment Notes Treatm ent Clinical Notes May, 33 weeks gestation of (ICD-10 - Z3A.33 ) May, Encounter for prophylactic a dministration of RhoGAM (ICD-10 - Z29.13) May, Maternal care for anti-D [Rh ] antibodies, third trimester, not applicable or unspecified (ICD-10 - O36.0130) PLAN OF TREATMENT Next Appt Details 2 Weeks Reason: Provider Name:Lisha Contreras, 2020-05 10:00:00 AM, [address] [place], [address], Follow Up:2 Weeksprenatal Insurance Providers Payer Name Payer Address Payer Phone Insured Name Patient Relati onship to Insured Coverage Start Date Coverage End Date [facility] COMM[facility] PLAN [facility] [address] [facility] [address] MIKE GREGORY self
--- OUTSIDE RECORDS SUMMARY | 2020-06-25 20:26 | CCD ---
Author Author [facility] Organization [facility] Address Unknown Phone Unavailable Care Team Providers Care Assistant Front End Manager Name Role Phone Radha Ortega Unavailable PROBLEMS Type Condition ICD9-CM Code [id number] Code Onset Dates Condition S tatus SNOMED Code Notes Problem Eczema, unspecified type L30.9 Active 8410011 0 Problem Acne vulgaris L70.0 Active 09876261 Problem Folliculitis L73.9 Active 90553609 Problem Vitamin D deficiency E55.9 Active 02142063 Problem Elevated LDL cholesterol level E78.00 Active 4 08276566 Problem Premature ventricular contraction I49.3 Active 10480998 Problem Obesity complicating in first trimester O99.21 1 Active Problem Vaginal bleeding N93.9 Active 677420826 Problem Supervision of other normal Z34.80 Ac tive 859822029 Problem Amenorrhea N91.2 Active 16649077 Problem Depression with anxiety F41.8 Active 34667653 Problem Obesity (BMI 30.0-34.9) E66.9 Active 53571756 1 Problem Episodic tension-type headache, not intractable G4 4.219 Active 905782272 Problem Cardiac arrhythmia, unspecified cardiac arrhythmia type I49.9 Active 370155650 ALLERGIES Allergen (clinical drug ingredient) Drug/Non Drug Allergy do cumented on EMR Reaction Allergy Type Onset Date Status sulfamethoxazole / trimethoprim Bactrim([facility] Code:[address]-97) Rash Drug Allergy Active ENCOUNTERS from 1993 to 2020-04-30 Encounter Location Date Provider Diagnosis [facility] [address] [place] [phone] Apr, Radha Vallandigham 29 weeks gestatio n of Z3A.29 ; Other specified related conditions, third trimester O26.893 and Heart burn R12 IMMUNIZATIONS Vaccine Route Administration Date Status RHo [...] Education Language: Question Answer Notes Languages spoken: Georgian Anglican: Question Answer Notes Anglican 99 Other Sexual Hx: Question Answer Notes [...] FOR REFERRAL No Information VITAL SIGNS Weight 220 lbs Apr, Weight-kg 99.79 kg Apr, Height 66 in Apr, BMI 35.509 kg/m2 Apr, Blood pressure systolic 112 mm Hg Apr, Blood pressure diastolic 70 mm Hg Apr, MEDICATIONS Medication SIG (Take, Route, Frequency, Duration) Notes Start Da te End Date Status Vitamins 28-0.8 MG 1 tablet Orally Once a day Active PROCEDURES No Information RESULTS No Results REASON FOR VISIT 4WK PN MEDICAL (GENERAL) HISTORY Type Description Date Medical History 10/2015 Medical History Spontaneous 03/2017 Medical History eczema Surgical History No know Surgical history Hospitalization History [facility] ER-Cellulitis of face 03/11/16 Hospitalization History [facility]- abd pain/ fever 09/2017 Hospitalization History pancreatitis Goals Section No Information Health Concerns No Information MEDICAL EQUIPMENT No Information MENTAL STATUS No Information FUNCTIONAL STATUS No Information ASSESSMENTS Encounter Date Diagnosis Assessment Notes Treatment Notes Treatm ent Clinical Notes Apr, 29 weeks gestation of (ICD-10 - Z3A.29 ) Apr, Other specified re lated conditions, third trimester (ICD- 10 - O26.893) Apr, Heart burn (ICD-10 - R12) PLAN OF TREATMENT Next Appt Details 2 Weeks Reason:return ob Provider Name:Chalino Jacobson, 2020-05-13 0 8:20:00 AM, [address] [place], [address], Follow Up:2 Weeksreturn ob Insurance Providers Payer Name Payer Address Payer Phone Insured Name Patient Relati onship to Insured Coverage Start Date Coverage End Date [facility] COMM[facility] PLAN [facility] [place] [address] [facility] [phone] MIKE GREGORY self
--- OUTSIDE RECORDS SUMMARY | 2020-06-25 20:27 | CCD ---
Author Author [facility] Organization [facility] Address Unknown Phone Unavailable Care Team Providers Care Control Chemist Name Role Phone WOLFENDEN, T BRUNO PA Unavailable Unavailable WOLFENDEN, T BRUNO PA Unavailable Unavailable WOLFENDEN, T BRUON PA Unavailable Unavailable WOLFENDEN, T BRUNO PA Unavailable Unavailable WOLFENDEN, T BRUNO PA Unavailable Unavailable WOLFENDEN, T BRUNO PA Unavailable Unavailable WOLFENDEN, T BRUNO PA Unavailable Unavailable WOLFENDEN, T BRUNO PA Unavailable Unavailable WOLFENDEN, T BRUNO PA Unavailable Unavailable WOLFENDEN, T BRUNO PA Unavailable Unavailable WOLFENDEN, T BRUNO PA Unavailable Unavailable WOLFENDEN, T BRUNO PA Unavailable Unavailable WOLFENDEN, T BRUNO PA Unavailable Unavailable WOLFENDEN, T BRUNO PA Unavailable Unavailable WOLFENDEN, T BRUNO PA Unavailable Unavailable WOLFENDEN, T BRUNO PA Unavailable Unavailable WOLFENDEN, T BRUNO PA Unavailable Unavailable WOLFENDEN, T BRUNO PA Unavailable Unavailable WOLFENDEN, T BRUNO PA Unavailable Unavailable WOLFENDEN, T BRUNO PA Unavailable Unavailable WOLFENDEN, T BRUNO PA Unavailable Unavailable WOLFENDEN, T BRUNO PA Unavailable Unavailable WOLFENDEN, T BRUNO PA Unavailable Unavailable WOLFENDEN, T BRUNO PA Unavailable Unavailable WOLFENDEN, T BRUNO PA Unavailable Unavailable WOLFENDEN, T BRUNO PA Unavailable Unavailable WOLFENDEN, T BRUNO PA Unavailable Unavailable WOLFENDEN, T BRUNO PA Unavailable Unavailable Alberry, D Effie K [employer] PRINCIPAL Unavailable Unavailable Alberry, D Effie K 8 SCHOOL PRINCIPAL Unavailable Unavailable Alberry, D Effie K 8 SCHOOL PRINCIPAL Unavailable Unavailable Alberry, D Effie K 8 SCHOOL PRINCIPAL Unavailable Unavailable Alberry, D Effie K 8 SCHOOL PRINCIPAL Unavailable Unavailable Alberry, D Effie K 8 SCHOOL PRINCIPAL Unavailable Unavailable Alberry, D Effie K 8 SCHOOL PRINCIPAL Unavailable Unavailable Alberry, D Effie K 8 SCHOOL PRINCIPAL Unavailable Unavailable Alberry, D Effie K 8 SCHOOL PRINCIPAL Unavailable Unavailable Alberry, D Effie K 8 SCHOOL PRINCIPAL Unavailable Unavailable Alberry, D Effie K 8 SCHOOL PRINCIPAL Unavailable Unavailable Alberry, D Effie K 8 SCHOOL PRINCIPAL Unavailable Unavailable Alberry, D Effie K 8 SCHOOL PRINCIPAL Unavailable Unavailable Alberry, D Effie K 8 SCHOOL PRINCIPAL Unavailable Unavailable Alberry, D Effie K 8 SCHOOL PRINCIPAL Unavailable Unavailable Alberry, D Effie K 8 SCHOOL PRINCIPAL Unavailable Unavailable Alberry, D Effie K 8 SCHOOL PRINCIPAL Unavailable Unavailable Alberry, D Effie K 8 SCHOOL PRINCIPAL Unavailable Unavailable Alberry, D Effie K 8 SCHOOL PRINCIPAL Unavailable Unavailable Alberry, D Effie K 8 SCHOOL PRINCIPAL Unavailable Unavailable Alberry, D Effie K 8 SCHOOL PRINCIPAL Unavailable Unavailable Alberry, D Effie K 8 SCHOOL PRINCIPAL Unavailable Unavailable Alberry, D Effie K 8 SCHOOL PRINCIPAL Unavailable Unavailable Alberry, D Effie K 8 SCHOOL PRINCIPAL Unavailable Unavailable Alberry, D Effie K 8 SCHOOL PRINCIPAL Unavailable Unavailable Alberry, D Effie K 8 SCHOOL PRINCIPAL Unavailable Unavailable Alberry, D Effie K 8 SCHOOL PRINCIPAL Unavailable Unavailable Alberry, D Effie K 8 SCHOOL PRINCIPAL Unavailable Unavailable Alberry, D Effie K 8 SCHOOL PRINCIPAL Unavailable Unavailable Alberry, D Effie K 8 SCHOOL PRINCIPAL Unavailable Unavailable Alberry, D Effie K 8 SCHOOL PRINCIPAL Unavailable Unavailable Alberry, D Effie K 8 SCHOOL PRINCIPAL Unavailable Unavailable Alberry, D Effie K 8 SCHOOL PRINCIPAL Unavailable Unavailable Alberry, D Effie K 8 SCHOOL PRINCIPAL Unavailable Unavailable Alberry, D Effie K 8 SCHOOL PRINCIPAL Unavailable Unavailable Alberry, D Effie K 8 SCHOOL PRINCIPAL Unavailable Unavailable Alberry, D Effie K 8 SCHOOL PRINCIPAL Unavailable Unavailable Alberry, D Effie K 8 SCHOOL PRINCIPAL Unavailable Unavailable Alberry, D Effie K 8 SCHOOL PRINCIPAL Unavailable Unavailable Alberry, D Effie K 8 SCHOOL PRINCIPAL Unavailable Unavailable Alberry, D Effie K 8 SCHOOL PRINCIPAL Unavailable Unavailable Alberry, D Effie K 8 SCHOOL PRINCIPAL Unavailable Unavailable Alberry, D Effie K 8 SCHOOL PRINCIPAL Unavailable Unavailable Alberry, D Effie K 8 SCHOOL PRINCIPAL Unavailable Unavailable Alberry, D Effie K 8 SCHOOL PRINCIPAL Unavailable Unavailable Alberry, D Effie K 8 SCHOOL PRINCIPAL Unavailable Unavailable Alberry, D Effie K 8 SCHOOL PRINCIPAL Unavailable Unavailable Alberry, D Effie K 8 SCHOOL PRINCIPAL Unavailable Unavailable Kinga BELTRÁN. PHOEBE Unavailable [phone] WERBLIN Z. PHOEBE Unavailable [phone] WERBLIN Z. PHOEBE Unavailable [phone] WERBLINEnzo PHOEBE Unavailable [phone] WERJOSSINKinga. PHOEBE Unavailable [phone] Carol DIOP MD Unavailable Unavailable Carol DIOP MD Unavailable Unavailable Carol DIOP MD Unavailable Unavailable Carol DIOP MD Unavailable Unavailable Carol DIOP MD Unavailable Unavailable Carol DIOP MD Unavailable Unavailable Carol DIOP MD Unavailable Unavailable Carol DIOP MD Unavailable Unavailable Carol DIOP MD Unavailable Unavailable Carol DIOP MD Unavailable Unavailable Carol DIOP MD Unavailable Unavailable Carol DIOP MD Unavailable Unavailable Carol DIOP MD Unavailable Unavailable Carol DIOP MD Unavailable Unavailable Carol DIOP MD Unavailable Unavailable Carol DIOP MD Unavailable Unavailable Carol DIOP MD Unavailable Unavailable Carol DIOP MD Unavailable Unavailable Carol DIOP MD Unavailable Unavailable Carol DIOP MD Unavailable Unavailable Carol DIOP MD Unavailable Unavailable Carol DIOP MD Unavailable Unavailable Carol DIOP MD Unavailable Unavailable Carol DIOP MD Unavailable Unavailable Carol DIOP MD Unavailable Unavailable Carol DIOP MD Unavailable Unavailable Carol DIOP MD Unavailable Unavailable Carol DIOP MD Unavailable Unavailable Carol DIOP MD Unavailable Unavailable Carol DIOP MD Unavailable Unavailable Carol DIOP MD Unavailable Unavailable Carol DIOP MD Unavailable Unavailable Carol DIOP MD Unavailable Unavailable Re-disclosure Warning The records that you are about to access may contain information from federally-assisted alcohol or drug abuse programs. If such information is present, then the following federally mandated warning applies: This information has been disclosed to you from records protected by federal confidentiality rules (42 CFR part 2). The federal rules prohibit you from making any further disclosure of this information unless further disclosure is expressly permitted by the written consent of the person to whom it pertains or as otherwise permitted by 42 CFR part 2. A general authorization for the release of medical or other information is NOT sufficient for this purpose. The Federal rules restrict any use of the information to criminally investigate or prosecute any alcohol or drug abuse patient.The records that you are about to access may contain highly sensitive health information, the redisclosure of which is protected by Article 27-F of the [facility] Public Health law. If you continue you may have access to information: Regarding HIV / AIDS; Provided by facilities licensed or operated by the [facility] Office of Mental Health; or Provided by the [facility] Office for People With Developmental Disabilities. If such information is present, then the following [facility] mandated warning applies: This information has been disclosed to you from confidential records which are protected by state law. State law prohibits you from making any further disclosure of this information without the specific written consent of the person to whom it pertains, or as otherwise permitted by law. Any unauthorized further disclosure in violation of state law may result in a fine or intermediate sentence or both. A general authorization for the release of medical or other information is NOT sufficient authorization for further disc losure. Allergies and Adverse Reactions Type Description Substance Reaction Status Data Source(s ) Drug allergy Bactrim sulfamethoxazole / trimethoprim Rash Ac tive eCW1 (Formerly [facility]) Encounters Encounter Providers Location Date Indications Data Source(s ) ( ESTOB) [facility] [address] [place] [address] 06/12/2020 12:00:00 AM EST eCW1 (Critical access hospital) Outpatient [address] [facility], [facility] [address] 06/04/2020 12:00:00 AM EST eCW1 ([facility]) Unknown [address] [facility] [address] 06/04/2020 12:00:00 AM EST eCW1 ([facility]) ( ESTOB) [facility] Est OB [address] [place] [address] 05/29/2020 12:00:00 AM EST eCW1 ([facility]) ( ESTOB) [facility] Est OB [address] [place] [address] 05/13/2020 12:00:00 AM EST eCW1 ([facility]) ( ESTOB) [facility] Est OB [address] [place] [address] 04/29/2020 12:00:00 AM EST eCW1 ([facility]) ( ESTOB) [facility] Est OB [address] [place] [address] 03/06/2020 12:00:00 AM EDT eCW1 ([facility]) [facility] [address] [facility] [address] 01/08/2020 12:00:00 AM EDT eCW1 ([facility]) ( NEWOB) [facility] New OB Visit [address] [place] [address] 11/27/2019 12:00:00 AM EDT eCW1 ([facility]) Emergency Attender: BRUNO CARRILLO EMERGENCY ROOM-ER 11/21/2019 03:18:00 PM EDT - 11/21/2019 04:55:00 PM EDT [facility] Patient discharged. [facility] [address] [facility] [address] 10/16/2019 12:00:00 AM EDT eCW1 ([facility]) [facility] [address] [facility] [address] 10/04/2019 12:00:00 AM EDT eCW1 ([facility]) [facility] [address] [facility] [address] 06/19/2019 12:00:00 AM EST eCW1 ([facility]) Outpatient Attender: DIDIER DIOP MD EMERGEN CY ROOM-LAB NOT ORDERED BY [facility] 05/12/2019 01:10:00 PM EST - 05/12/2019 01:10:00 PM [facility] Outpatient Attender: Effiemarjorie Lomas K [employer]INCIPAL 12/13/2018 04:00 :00 PM [facility] Inpatient Attender: PHOEBE ELLISdmitter: PHOEBE BELTRÁN EMERGENCY ROOM-2N 09/23/2017 01:45:00 AM EDT - 09/23/2017 06:18:00 PM [facility] Immunizations Vaccine Date Status Description Data Source(s) RHo (D) Immune Globulin 300mcg/1.5mL (RhoGAM) 05/29/2020 10: 54:00 AM EST completed eCW1 ([facility]) RHo (D) Immune Globulin 300mcg/1.5mL (RhoGAM) 05/29/2020 10: 54:00 AM EST completed eCW1 ([facility]) RHo (D) Immune Globulin 300mcg/1.5mL (RhoGAM) 05/29/2020 10: 54:00 AM EST completed eCW1 ([facility]) RHo (D) Immune Globulin 300mcg/1.5mL (RhoGAM) 05/29/2020 10: 54:00 AM EST completed eCW1 ([facility]) Medications Medication Brand Name Start Date Product Form Dose Route Admi nistrative Instructions Pharmacy Instructions Status Indications Reaction Description Data Source(s) 20 mg 06/12/2020 12:00:00 AM EST capsule,delayed release (DR/EC) 30 TAKE 1 CAPSULE BY MOUTH 30 MINUTES BEFORE MORNING MEAL TAKE 1 CAPSULE BY MOUTH 30 MINUTES BEFORE MORNING MEAL SOLD: 06/12/2020 [facility] Omeprazole 20 MG Delayed Release Oral Capsule Omeprazole 20 MG 05/13/2020 12:00:00 AM EST suspended Omepr azole 20 MG eCW1 ([facility]ly [facility]) Omeprazole 20 MG Delayed Release Oral Capsule Omeprazole 20 MG 05/13/2020 12:00:00 AM EST suspended Omepr azole 20 MG eCW1 (Formerly [facility]) Omeprazole 20 MG Delayed Release Oral Capsule Omeprazole 20 MG 05/13/2020 12:00:00 AM EST active Omeprazo le 20 MG eCW1 (Formerly [facility]) Omeprazole 20 MG Delayed Release Oral Capsule Omeprazole 20 MG 05/13/2020 12:00:00 AM EST active Omeprazo le 20 MG eCW1 ([facility]ly [facility]) Omeprazole 20 MG Delayed Release Oral Capsule Omeprazole 20 MG 05/13/2020 12:00:00 AM EST suspended Omepr azole 20 MG eCW1 ([facility]ly [facility]) 20 mg 11/26/2019 12:00:00 AM EDT tablet 60 TAKE ONE TABLET BY MOUTH TWICE A DAY (FINANCE ADMIN ON EMPTY STOMACH AND AT BEDTIME) TAKE FOR 6 WEEKS AND THEN TAPER OFF TAKE ONE TABLET BY MOUTH TWICE A DAY (EA RLY MORNING ON EMPTY STOMACH AND AT BEDTIME) TAKE FOR 6 WEEKS AND THEN TAPER OFF SOLD: 12/07/2019 [facility] 20 mg 09/22/2019 12:00:00 AM EDT tablet 60 TAKE ONE TABLET BY MOUTH TWICE A DAY (FINANCE ADMIN ON EMPTY STOMACH AND AT BEDTIME) TAKE FOR 6 WEEKS AND THEN TAPER OFF TAKE ONE TABLET BY MOUTH TWICE A DAY (EA RLY MORNING ON EMPTY STOMACH AND AT BEDTIME) TAKE FOR 6 WEEKS AND THEN TAPER OFF SOLD: 09/22/2019 [facility] 0.18/0.215/0.25 mg-35 mcg (28) 07/02/2019 12:00:00 AM EST ta blet 28 TAKE ONE TABLET BY MOUTH EVERY DAY TAKE ONE TABLET BY MOUTH EVERY DAY SOLD: 07/02/2019 [facility] venlafaxine 37.5 MG Oral Tablet VENLAFAXINE HCL 06/19/2019 12:00 :00 AM EST tablet 30 TAKE ONE TABLET BY MOUTH EVERY D AY TAKE ONE TABLET BY MOUTH EVERY DAY SOLD: 06/27/2019 [facility] 40 mg 05/18/2019 12:00:00 AM EST tablet,delayed release (DR/EC) 30 TAKE ONE TABLET BY MOUTH IN THE MORNING 1/2 HOUR BEFORE BREAKFAST (TOTAL COURSE OF 6 WEEKS THEN TAPER OFF) TAKE ONE TABLET BY MOUTH IN THE MORNING 1/2 HOUR BEFORE BREAKFAST (TOTAL COURSE OF 6 WEEKS THEN TAPER OFF) SOLD: 06/27/2019 [facility] 40 mg 05/18/2019 12:00:00 AM EST tablet,delayed release (DR/EC) 30 TAKE ONE TABLET BY MOUTH IN THE MORNING 1/2 HOUR BEFORE BREAKFAST (TOTAL COURSE OF 6 WEEKS THEN TAPER OFF) TAKE ONE TABLET BY MOUTH IN THE MORNING 1/2 HOUR BEFORE BREAKFAST (TOTAL COURSE OF 6 WEEKS THEN TAPER OFF) SOLD: 05/24/2019 [facility] 50 mg 05/08/2019 12:00:00 AM EST tablet 30 TAKE ONE TABLET BY MOUTH EVERY DAY TAKE ONE TABLET BY MOUTH EVERY DAY SOLD: 06/27/2019 [facility] 50 mg 05/08/2019 12:00:00 AM EST tablet 30 TAKE ONE TABLET BY MOUTH EVERY DAY TAKE ONE TABLET BY MOUTH EVERY DAY SOLD: 05/24/2019 [facility] venlafaxine 37.5 MG Oral Tablet VENLAFAXINE HCL 04/09/2019 12:00 :00 AM EST tablet 30 TAKE ONE TABLET BY MOUTH EVERY D AY WITH FOOD TAKE ONE TABLET BY MOUTH EVERY DAY WITH FOOD SOLD: 05/24/2019 [facility] 1,250 mcg (50,000 unit) 02/19/2019 12:00:00 AM EDT capsule 4 TAKE ONE CAPSULE BY MOUTH WEEKLY TAKE ONE CAPSULE BY MOUTH WEEKLY SOLD: 06/05/2019 [facility] 1,250 mcg (50,000 unit) 02/19/2019 12:00:00 AM EDT capsule 4 TAKE ONE CAPSULE BY MOUTH WEEKLY TAKE ONE CAPSULE BY MOUTH WEEKLY SOLD: 07/02/2019 [facility] 1,250 mcg (50,000 unit) 02/19/2019 12:00:00 AM EDT capsule 4 TAKE ONE CAPSULE BY MOUTH WEEKLY TAKE ONE CAPSULE BY MOUTH WEEKLY SOLD: 05/06/2019 [facility] 0.18/0.215/0.25 mg-35 mcg (28) 12/25/2018 12:00:00 AM EDT ta blet 28 TAKE ONE TABLET BY MOUTH EVERY DAY TAKE ONE TABLET BY MOUTH EVERY DAY SOLD: 06/05/2019 [facility] 0.18/0.215/0.25 mg-35 mcg (28) 12/25/2018 12:00:00 AM EDT ta blet 28 TAKE ONE TABLET BY MOUTH EVERY DAY TAKE ONE TABLET BY MOUTH EVERY DAY SOLD: 05/06/2019 [facility] Insurance Providers Payer name Policy type / Coverage type Policy ID Covered libertarian ID Covered libertarian's relationship to yanez Policy Yanez Plan Information [facility] COMMUNITY PLAN MCDHMO [id number] SP [id number] [facility] COMMUNITY PLAN MCDHMO [id number] SP [id number] [facility] MEDICAID [id number] S [id number] [facility] MEDICAID [id number] S [id number] [facility] MEDICAID [id number] S [id number] UN COMMUNITY PLAN MCDHMO [id number] SP [id number] ANS-Medicaid [id number] ANSI-Medicaid [id number] ANSI-Medicaid [id number] ANSI-Medicaid [id number] ANSI-Medicaid [id number] ANSI-Medicaid [id number] ANSI-Medicaid [id number] ANSI-Medicaid [id number] ANSI-Medicaid [id number] ANSI-Medicaid [id number] ANSI-Medicaid [id number] ANSI-Medicaid [id number] ANSI-Medicaid [id number] ANSI-Medicaid [id number] ANSI-Medicaid [id number] ANSI-Medicaid [id number] [facility] [id number] S [id number] [facility] UNAVAILABLE S UNAVAILABLE [facility] MEDICAID [id number] S [id number] UNHC COMMUNITY PLAN [facility] [id number] SP [id number] UN COMMUNITY PLAN [facility] [id number] SP [id number] [facility](MCAID) O [id number] S [id number] O UNAVAILABLE UNAVAILA BLE MEDICAID [id number] SP [id number] SELF PAY ONLY [id number] SP [id number] SELF PAY UNAVAILABLE SP UNAVAILA BLE [place]LE [id number] SP [id number] 200 [facility] [id number] S [id number] MEDICAID MCD [id number] S [id number] Problems, Conditions, and Diagnoses Code Display Name Description Problem Type Effective Dates Data Source(s) E66.9 Obesity Obesity Problem 06/12/2020 12:00:00 AM ES T eCW1 ([facility]) K21.9 Gastroesophageal reflux disease GERD (gastroesop hageal reflux disease) Problem 06/12/2020 12:00:00 AM EST eCW1 ([facility]) O99.213 Obesity complicating , third tr imester Obesity complicating in third trimester Problem 06/10/2020 12:00:00 AM EST eCW1 (Formerly [facility]) O99.211 Obesity complicating , first tr imester Obesity complicating in first trimester Problem 11/27/2019 12:00:00 AM EDT eCW1 ([facility]ly [facility]) Z34.80 care Supervision of other normal P georgelem 11/26/2019 12:00:00 AM EDT eCW1 ([facility]) G44.219 [id number] Episodic tension-type headache, not intra ctable Problem 10/04/2019 12:00:00 AM EDT eCW1 ([facility]ly [facility]) I49.9 [id number] Cardiac arrhythmia, unspecified cardiac a rrhythmia type Problem 10/04/2019 12:00:00 AM EDT eCW1 ([facility]) G44.219 [id number] Episodic tension-type headache, not intra ctable Problem 10/04/2019 12:00:00 AM EDT eCW1 ([facility]) I49.9 [id number] Cardiac arrhythmia, unspecified cardiac a rrhythmia type Problem 10/04/2019 12:00:00 AM EDT eCW1 ([facility]) Z3A.01 Less than 8 weeks gestation of LESS THAN 8 WEEKS GESTATION OF Diagnosis 11/21/2019 03:18:00 PM EDT [facility] R10.31 Right lower quadrant pain RIGHT LOWER QUADRANT PAIN Di agnosis 11/21/2019 03:18:00 PM EDT [facility] O26.891 Other specified related condit ions, first trimester OTH RELATED CONDITIONS, FIRST TRIMESTER Diagnosis 11/21/19 20 03:18:00 PM EDT [facility] O20.9 Hemorrhage in early , unspecifi ed HEMORRHAGE IN EARLY , UNSPECIFIED Diagnosis 11/21/2019 03:18:00 PM EDT [facility] K58.0 Irritable bowel syndrome with diarrhea I RRITABLE BOWEL SYNDROME WITH DIARRHEA Diagnosis 05/12/2019 01:10:00 PM EST [facility]Procedures Procedure Description Date Indications Data Source(s) Injection: RhoGAM 300mcg/1.5mL IM (Rho [D] Immune Globulin H uman) 05/29/2020 12:00:00 AM EST eCW1 ([facility]) Results ID Date Data Source GROUP B STREP CULTURE 06/12/2020 12:00:00 AM EST eCW1 ([facility]) Name Value Range Interpretation Code Description Data Halley rce(s) Supporting Document(s) GROUP B STREP CULTURE [facility] ID Date Data Source [id number] 05/07/2020 12:00:00 AM EST [facility] Name Value Range Interpretation Code Description Data Halley rce(s) Supporting Document(s) SARS coronavirus 2 RNA [Presence] in Res piratory specimen by JANNETH with probe detection [facility] This lab was ordered by Manny Bravo and reported by [employer]. ID Date Data Source WWBC OBS FOLLOW UP OR REPEAT 03/12/2020 09:25:29 AM EDT eCW1 ([facility]) Name Value Range Interpretation Code Description Data Halley rce(s) Supporting Document(s) WWBC OBS FOLLOW UP OR REPEAT e CW1 ([facility]) ID Date Data Source Glucose Challenge Test 1 Hour 11/29/2019 09:16:58 AM EDT eCW 1 ([facility]) Name Value Range Interpretation Code Description Data Halley rce(s) Supporting Document(s) 110 eCW1 ([facility]) ID Date Data Source HBSAG 11/29/2019 09:16:48 AM EDT eCW1 ([facility]) Name Value Range Interpretation Code Description Data Halley rce(s) Supporting Document(s) NEGATIVE eCW1 ([facility]) ID Date Data Source HEPATITIS C ANTIBODY INDEX 11/29/2019 09:16:40 AM EDT eCW1 ( [facility]) Name Value Range Interpretation Code Description Data Halley rce(s) Supporting Document(s) 0.1 eCW1 ([facility]) ID Date Data Source RUBELLA IMMUNE STATUS IgG 11/29/2019 09:16:32 AM EDT eCW1 ([facility]) Name Value Range Interpretation Code Description Data Halley rce(s) Supporting Document(s) SUSCEPTIBLE eCW1 ([facility]) ID Date Data Source SYPHILIS ANTIBODY (RPR SCREEN) 11/29/2019 09:15:37 AM EDT eC W1 ([facility]) Name Value Range Interpretation Code Description Data Halley rce(s) Supporting Document(s) NONREACTIVE eCW1 ([facility]) ID Date Data Source [id number] 11/29/2019 09:15:28 AM EDT eCW1 ([facility]) Name Value Range Interpretation Code Description Data Halley rce(s) Supporting Document(s) eCW1 ([facility]) ID Date Data Source [id number] 11/28/2019 09:48:09 AM EDT eCW1 ([facility]) Name Value Range Interpretation Code Description Data Halley rce(s) Supporting Document(s) Hemoglobin A1c/Hemoglobin.total in Blood 4.7 eCW1 ([facility]) ID Date Data Source Type and Screen Prenatal1 11/28/2019 09:47:58 AM EDT eCW1 ([facility]) Name Value Range Interpretation Code Description Data Halley rce(s) Supporting Document(s) NEGATIVE eCW1 ([facility]) ID Date Data Source CHLAMYDIA & GC DNA AMPLIFICAT 11/28/2019 09:47:00 AM EDT eCW 1 ([facility]) Name Value Range Interpretation Code Description Data Halley rce(s) Supporting Document(s) Chlamydia trachomatis rRNA [Presence] in Unspecified specimen by Probe and target amplification method NEGATIVE CHLAMYDIA DNA AMPLIFICATION eCW1 ([facility]) ID Date Data Source CBC - Complete Blood Count 11/28/2019 09:46:51 AM EDT eCW1 ( [facility]) Name Value Range Interpretation Code Description Data Halley rce(s) Supporting Document(s) 12.8 eCW1 ([facility]) 13.2 eCW1 ([facility]) 39.5 eCW1 ([facility]) 93.4 eCW1 ([facility]) 4.23 eCW1 ([facility]) 31.2 eCW1 ([facility]) 33.4 eCW1 ([facility]) 237 eCW1 [facility] [facility] 12.4 eCW1 ([facility]) ID Date Data Source URINE CULTURE 11/28/2019 02:28:58 AM EDT eCW1 ([facility]) Name Value Range Interpretation Code Description Data Halley rce(s) Supporting Document(s) eCW1 ([facility]) ID Date Data Source [id number] 11/21/2019 04:39:00 PM EDT [facility] DATE OF EXAMINATION: 11/21/2019 15:06 EDT OB LESS THAN 14 WKS HISTORY: Evaluate for ectopic Single viable intrauterine gestation with a crown-rump length of 7.2 mmcorresponding to 6 weeks 4 days with a heart rate of 130 bpm is noted. There areno adnexal masses or fluid in the cul-de-sac. IMPRESSION: Single viable intrauterine gestation with an estimated gestational age of 6weeks 4 days. 2. EDC according to earliest sonogram is 07/12/2020. Electronically signed in PS360 by: Vania Maldonado M.D. 11/21/2019 16:33 EDT Name Value Range Interpretation Code Description Data Halley rce(s) Supporting Document(s) ID Date Data Source [id number] 11/21/2019 05:42:00 PM EDT [facility] TSYSORDER [id number] Name Value Range Interpretation Code Description Data Halley rce(s) Supporting Document(s) URINE RBC 0-2 /hpf 0-3 [facility] URINE WBC NONE SEEN /hpf 0-5 [facility] ID Date Data Source [id number] 11/21/2019 05:10:00 PM EDT [facility] ital TSYSORDER [id number] Name Value Range Interpretation Code Description Data Halley rce(s) Supporting Document(s) URINE COLOR. [facility] URINE APPEARANCE CLEAR [facility] SPECIFIC GRAVITY,URINE 1.010 1.001-1.035 [facility] URINE LEUKOCYTE ESTERASE NEGATIVE NEGATIVE [facility] URINE NITRATE NEGATIVE NEGATIVE [facility] PH,URINE 6.5 5.0-9.0 [facility] URINE PROTEIN NEGATIVE mg/dL NEGATIVE [facility] GLUCOSE (UA) NEGATIVE mg/dL NEGATIVE [facility] URINE KETONE 5(TRACE) mg/dL NEGATIVE [facility] al URINE UROBILINOGEN NORMAL(0.2-1) mg/dL 0-1 [facility] URINE BILIRUBIN NEGATIVE NEGATIVE [facility] URINE BLOOD TRACE NEGATIVE [facility] ID Date Data Source [id number] 11/21/2019 04:02:00 PM EDT [facility] TSYSORDER [id number] Name Value Range Interpretation Code Description Data Halley rce(s) Supporting Document(s) BETA HCG,QUANT 56328 mIU/mL [facility] al Female(non ) <10mIU/mLW eeks after Conception mIU/mL 1 Week 5-501-2 Weeks 50-5002-3 Weeks 100-5,0003-4 Weeks 500-10,0004-5 Weeks 1,000-50,0005-6 Weeks 10,000-100,0006-8 Weeks 15,000-200,0002nd Trimester 10,000-100,000 ID Date Data Source [id number] 11/21/2019 04:02:00 PM EDT [facility] TSYSORDER [id number] Name Value Range Interpretation Code Description Data Halley rce(s) Supporting Document(s) GLUCOSE 81 mg/dL 74-106 [facility] BLOOD UREA NITROGEN 9 mg/dL 7-18 [facility] ital CREATININE 0.7 mg/dL 0.6-1.0 [facility] SODIUM 134 mmol/L 136-145 L [facility] POTASSIUM 3.5 mmol/L 3.5-5.1 [facility] CHLORIDE 99 mmol/L 98-107 [facility] CO2 25 mmol/L 21-32 [facility] CALCIUM 8.7 mg/dL 8.5-10.1 [facility] ANION GAP 10.0 mmol/L 5-12 [facility] GLOMERULAR FILTRATION RATE >90 mL/min [facility] GFR IS CALCULATED IN mL/min/1.73m2 LIAM L FUNCTION: >90MILDLY DECREASED: 60-89MILDY TO MODERATELY DECREASED: 45-59 MODERATELY TO SEVERELY DECREASED: 30-44SEVERELY DECREASED: 15-29RENAL FAILURE: <15 AST 17 U/L 15-37 [facility] ALT 25 U/L 12-78 [facility] ALKALINE PHOSPHATASE 72 U/L 46-116 [facility] TOTAL BILIRUBIN 0.2 mg/dL 0.2-1.0 [facility] TOTAL PROTEIN 7.6 g/dl 6.4-8.2 [facility] ALBUMIN 3.9 gm/dL 3.4-5.0 [facility] ID Date Data Source [id number] 11/21/2019 03:23:00 PM EDT [facility] TSYSORDER [id number] Name Value Range Interpretation Code Description Data [facility] Supporting Document(s) WHITE BLOOD COUNT 12.2 K/mm3 4.0-10.0 [facility] carlotta RED BLOOD COUNT 4.35 M/mm3 4.00-5.50 [facility] HEMOGLOBIN 13.4 gm/dL 12.0-16.0 [facility] HEMATOCRIT 38.9 % 36.0-48.8 [facility] MEAN CELL VOLUME 89.4 fl 80-96 [facility] MEAN CORPUSCULAR HEMOGLOBIN 30.8 pg 27.0-31.0 [facility] MEAN CORPUSCULAR HGB CONC 34.4 g/dl 32.0-36.0 [facility] RED CELL DISTRIBUTION WIDTH 11.8 % 10.0-14.5 [facility] PLATELET COUNT 253 K/mm3 172-450 [facility] MEAN PLATELET VOLUME 8.8 fl 9.0-13.[address] [facility] pital GRAN % 79.5 % 50-80.0 [facility] IG% 0.3 % 0.0-0.2 [facility] LYMPH % 14.3 % 25.0-50.0 L [facility] MONO % 5.6 % 2.0-10.0 [facility] EOS % 0.2 % 0-5.0 [facility] BASO % 0.1 % 0.0-2.0 [facility] GRAN # 9.7 K/mm3 2.0-8.00 H [facility] IG# 0.0 K/mm3 0.0-0.2 [facility] LYMPH # 1.8 K/mm3 1.0-5.0 [facility] MONO # 0.7 K/mm3 0.10-1.20 [facility] EOS # 0.0 K/mm3 0.0-0.5 [facility] BASO # 0.0 K/mm3 0.0-0.2 [facility] ID Date Data Source [id number] 05/18/2019 04:06:00 PM EST [facility] Name Value Range Interpretation Code Description Data Halley rce(s) Supporting Document(s) Immunoglobulin A, Qn, Serum 271 mg/dL 87-352 [facility] IgA, Subclass 1 212.1 mg/dL 73.2-301.2 [facility] IgA, Subclass 2 42.6 mg/dL 13.4-97.9 [facility] ID Date Data Source [id number] 05/12/2019 01:15:00 PM EST [facility] ([facility], ) Name Value Range Interpretation Code Description Data Halley rce(s) Supporting Document(s) Laboratory test finding (navigational concept) <9.0 units 0.0-8.9 [facility] ([facility], ) <content>Negative <9.0</content >
<content>Equivocal 9.0 - 11.0</content>
<content>Positive >11.0</content>
<content>This test was developed and its performance characteristics</content>
<content>determined by [facility]. It has not been cleared or</content>
<content>approved by the Food and Drug Administration .</content>
<content>Performed at: [facility]</content>
<content>[address] [place], [place] [address], [place] [id number]</content>
<content>[employer]: Jessica Prince MD, Phone: [phone]</content>
<content></content> Laboratory test finding (navigational concept) 0.35 0.00-0.79 [facility] ([facility]) <content>INFCE Result Units: Index Value </content>
<content>Negative <0.80</content>
<content>Equivocal 0.80 - 0.89</content>
<content>Positive >0.89</content>
<content></content> Laboratory test finding (navigational concept) <9.0 units 0.0-8.9 [facility] ([facility]) <content>Negative <9.0</content >
<content>Equivocal 9.0 - 11.0</content>
<content>Positive >11.0</content>
<content></content> ID Date Data Source [id number] 05/12/2019 01:15:00 PM EST [facility]) Name Value Range Interpretation Code Description Data Halley rce(s) Supporting Document(s) Tissue transglutaminase IgA Ab [Units/volume] in Serum <2 U/mL 0-3 [facility] ([facility]) Negative 0 - 3 Weak Positive 4 - 10 Positive >10 Tissue Transglutaminase (tTG) has been identified as the endomysial antigen. Studies have demonstr- ated that endomysial IgA antibodies have over 99% specificity for gluten sensitive enteropathy. Performed at: RN - [facility] [address] [id number] [employer]: Jessica Prince MD, Phone: [phone] ID Date Data Source [id number] 05/12/2019 01:15:00 PM EST [facility] ([facility]) Name Value Range Interpretation Code Description Data Halley rce(s) Supporting Document(s) Alt 31 U/L 12-78 [facility] ([facility]) Ast 18 U/L 15-37 [facility] ([facility], ) Tbili 0.2 mg/dL 0.2-1.0 [facility] ([facility], ) Dbili 0.06 mg/dL 0-0.2 [facility] ([facility], ) Alk 81 U/L 46-116 [facility] ([facility], ) TP 7.3 g/dL 6.4-8.2 [facility] ([facility], ) Alb 4.0 gm/dL 3.4-5.0 [facility] ([facility], ) ID Date Data Source [id number] 05/15/2019 08:05:00 PM EST [facility] Name Value Range Interpretation Code Description Data Halley rce(s) Supporting Document(s) T-TRANSGLUTAMINASE (TTG) IGA <2 U/mL 0-3 [facility] Negative 0 - 3 Weak Positive 4 - 10 Positive >10 Tissue Transglutaminase (tTG) has been identified as the endomysial antigen. Studies have demonstr- ated that endomysial IgA antibodies have over 99% specificity for gluten sensitive enteropathy.Performed at: [address] [id number] Director: Jessica Prince MD, Phone: [phone] ID Date Data Source [id number] 05/17/2019 04:10:00 PM EST [facility] Name Value Range Interpretation Code Description Data Halley rce(s) Supporting Document(s) H. PYLORI, IGM ABS <9.0 units 0.0-8.9 [facility] Negative <9.0 Equivocal 9.0 - 11.0 Positive > 11.0This test was developed and its performance characteristicsdetermined by [facility]. It has not been cleared orapproved by the Food and Drug Administration.Performed at: [address] [id number] Director: Jessica Prince MD, Phone: [phone] H. PYLORI, IGG ABS 0.35 0.00-0.79 [facility] carlotta INFCE Result Units: Index Value Negative <0.80 Equivocal 0.80 - 0.89 Positive >0.89 H. PYLORI, IGA ABS <9.0 units 0.0-8.9 [facility] Negative <9.0 Equivocal 9.0 - 11.0 Positive >11.0 ID Date Data Source [id number] 05/15/2019 08:05:00 PM EST [facility] Name Value Range Interpretation Code Description Data Halley rce(s) Supporting Document(s) t-Transglutaminase (tTG) IgA 0-3 [facility] Negative 0 - 3 Weak Positive 4 - 10 Positive >10 Tissue Transglutaminase (tTG) has been identified as the endomysial antigen. Studies have demonstr- ated that endomysial IgA antibodies have over 99% specificity for gluten sensitive enteropathy. ID Date Data Source [id number] 05/17/2019 04:05:00 PM EST [facility] Name Value Range Interpretation Code Description Data Halley e(s) Supporting Document(s) H. pylori, IgG Abs 0.35 Index Value 0.00-0.79 [facility] Negative <0.80 Equivocal 0.80 - 0.89 Positive >0.89 H. pylori, IgA Abs 0.0-8.9 [facility] Negative <9.0 Equivocal 9.0 - 11.0 Positive >11.0 H pylori, IgM Abs 0.0-8.9 [facility] Negative <9.0 Equivocal 9.0 - 11.0 Positive >11.0 This test was developed and its performance characteristicsdetermined by [facility]. It has not been cleared or approvedby the Food and Drug Administration. ID Date Data Source [id number] 05/12/2019 02:16:00 PM EST [facility] [id number] Name Value Range Interpretation Code Description Data Halley rce(s) Supporting Document(s) AST 18 U/L 15-37 [facility] ALT 31 U/L 12-78 [facility] ALKALINE PHOSPHATASE 81 U/L 46-[address] [facility] pital TOTAL BILIRUBIN 0.2 mg/dL 0.2-1.0 [facility] DIRECT BILIRUBIN 0.06 mg/dL 0-0.2 [facility] TOTAL PROTEIN 7.3 g/dl 6.4-8.2 [facility] ALBUMIN 4.0 gm/dL 3.4-5.0 [facility] Procedure Social History Code Duration Value Status Description Data Source(s ) Smoking 06/22/2020 12:00:00 AM EST Never Smoker completed Never S moker eCW1 ([facility]) Smoking 06/04/2020 12:00:00 AM EST Never Smoker completed Never S moker eCW1 ([facility]) Smoking 06/04/2020 12:00:00 AM EST Never Smoker completed Never S moker eCW1 ([facility]) Smoking 06/04/2020 12:00:00 AM EST Never Smoker completed Never S moker eCW1 ([facility]) Smoking 05/12/2020 12:00:00 AM EST Never Smoker completed Never S moker eCW1 ([facility]) Smoking 04/25/2020 12:00:00 AM EST Never Smoker completed Never S moker eCW1 ([facility]) Smoking 03/31/2020 12:00:00 AM EST Never Smoker completed Never S moker eCW1 ([facility]) Smoking 03/06/2020 12:00:00 AM EDT Never Smoker completed Never S moker eCW1 ([facility]) Vital Signs ID Date Data Source [id number] Name Value Range Interpretation Code Description Data Source(s) Diastolic blood pressure 82 mm[Hg] 82 mm[Hg] W1 ([facility]) Systolic blood pressure 120 mm[Hg] 120 mm[Hg] e CW1 ([facility]) Body mass index (BMI) [Ratio] 36.8 kg/m2 36.8 k g/m2 W1 ([facility]) Body height 66 [in_i] 66 [in_i] W1 ([facility]) Body weight 228 [lb_av] 228 [lb_av] W1 ([facility]) Diastolic blood pressure 79 mm[Hg] 79 mm[Hg] eCW1 ([facility]) Systolic blood pressure 119 mm[Hg] 119 mm[Hg] e CW1 ([facility]) Body temperature 98.5 [degF] 98.5 [degF] eCW1 ( [facility]) Respiratory rate 18 /min 18 /min [facility] Heart rate 114 /min 114 /min eCW1 ([facility]) Body mass index (BMI) [Ratio] 36.63 kg/m2 36.63 kg/m2 eCW1 ([facility]) Body height 66 [in_i] 66 [in_i] eCW1 ([facility]) Body weight 227 [lb_av] 227 [lb_av] eCW1 ([facility]) Diastolic blood pressure 70 mm[Hg] 70 mm[Hg] eCW1 ([facility]) Systolic blood pressure 124 mm[Hg] 124 mm[Hg] e CW1 ([facility]) Body mass index (BMI) [Ratio] 36.703 kg/m2 36.7 03 kg/m2 eCW1 ([facility]) Body height 66 [in_i] 66 [in_i] eCW1 ([facility]) Body weight 227.4 [lb_av] 227.4 [lb_av] eCW1 ([facility]) Diastolic blood pressure 62 mm[Hg] 62 mm[Hg] eCW1 ([facility]) Systolic blood pressure 112 mm[Hg] 112 mm[Hg] e CW1 ([facility]) Body mass index (BMI) [Ratio] 35.509 kg/m2 35.5 09 kg/m2 eCW1 ([facility]) Body height 66 [in_i] 66 [in_i] eCW1 ([facility]) Body weight 99.79 kg 99.79 kg eCW1 ([facility]) Body weight 220.0 [lb_av] 220.0 [lb_av] eCW1 ([facility]) Diastolic blood pressure 70 mm[Hg] 70 mm[Hg] eCW1 ([facility]) Systolic blood pressure 112 mm[Hg] 112 mm[Hg] e CW1 ([facility]) Body mass index (BMI) [Ratio] 35.509 kg/m2 35.5 09 kg/m2 eCW1 ([facility]) Body height 66 [in_i] 66 [in_i] eCW1 ([facility]) Body weight 99.79 kg 99.79 kg eCW1 ([facility]) Body weight 220 [lb_av] 220 [lb_av] eCW1 ([facility]) Diastolic blood pressure 78 mm[Hg] 78 mm[Hg] eCW1 ([facility]) Systolic blood pressure 126 mm[Hg] 126 mm[Hg] e CW1 ([facility]) Body mass index (BMI) [Ratio] 34.218 kg/m2 34.2 18 kg/m2 eCW1 ([facility]) Body height 66 [in_i] 66 [in_i] eCW1 ([facility]) Body weight 212 [lb_av] 212 [lb_av] eCW1 ([facility]) Diastolic blood pressure 74 mm[Hg] 74 mm[Hg] eCW1 ([facility]) Systolic blood pressure 128 mm[Hg] 128 mm[Hg] e CW1 ([facility]) Body mass index (BMI) [Ratio] 34.056 kg/m2 34.0 56 kg/m2 eCW1 ([facility]) Body height 66 [in_i] 66 [in_i] eCW1 ([facility]) Body weight 211 [lb_av] 211 [lb_av] eCW1 ([facility]) Diastolic blood pressure 80 mm[Hg] 80 mm[Hg] eCW1 ([facility]) Systolic blood pressure 123 mm[Hg] 123 mm[Hg] e CW1 ([facility]) Body temperature 98.6 [degF] 98.6 [degF] eCW1 ( [facility]) Respiratory rate 18 /min 18 /min [facility]CW[facility] Heart rate 99 /min 99 /min eCW1 ([facility]) Body mass index (BMI) [Ratio] 34.38 kg/m2 34.38 kg/m2 eCW1 ([facility]) Body height 66 [in_us] 66 [in_us] eCW1 ([facility]) Body weight Measured [lb_av] W1 ([facility]) Body weight 101.153 kg 101.153 kg [facility] ([facility]) Body mass index (BMI) [Ratio] 37.1 kg/m2 37.1 k g/m2 [facility] ([facility]) Body weight 223.00 [lb_av] 223.00 [facility]_av] [facility] Body height 65 [in_i] 65 [in_i] [facility] ([facility]) 5'5" Diastolic blood pressure 76 mm[Hg] 76 mm[Hg] [facility] ([facility]) Systolic blood pressure 122 mm[Hg] 122 mm[Hg] [facility] Patient Treatment Plan of Care Planned Activity Planned Date Details Description Data Source (s) Omeprazole 20 MG Delayed Release Oral Capsule 05/13/2020 12:00:00 A M EST eCW1 ([facility]) Omeprazole 20 MG Delayed Release Oral Capsule 05/13/2020 12:00:00 A M EST eCW1 ([facility])
[2020-06-25] MEDS ORDERED: OXYTOCIN DRIP 30 UNITS in IV 1 EA IV SCH (20:30)
[2020-06-25 21:27] LABS: HEMATOCRIT 37.5 % (36.0-47.0); HEMOGLOBIN 12.3 g/dl (12.0-15.5); MEAN CORPUSCULAR HEMOGLOBIN 30.2 pg (27.0-33.0); MEAN CORPUSCULAR HGB CONC 32.8 g/dl (32.0-36.5); MEAN CORPUSCULAR VOLUME 92.1 fl (80.0-96.0); PLATELET COUNT, AUTOMATED 185 10^3/uL (150-450); RED BLOOD COUNT 4.07 10^6/uL (4.00-5.40); WHITE BLOOD COUNT 13.6 10^3/uL (4.0-10.0)
[2020-06-25 22:14] LABS: TOTAL PROTEIN,RANDOM URINE 28.4 MG/DL (0.0-12.0)
[2020-06-25] MEDS ORDERED: FENTANYL 2MCG/ML ROPIVACAINE 0.2% IN 0.9% NACL 100ML IVBAG As Ordered ONE (22:14)
[2020-06-25 22:17] LABS: ALT/SGPT 21 U/L (12-78); BILIRUBIN,TOTAL 0.1 MG/DL (0.2-1.0); CREATININE FOR GFR 0.79 MG/DL (0.55-1.30); GLOMERULAR FILTRATION RATE > 60.0 (>60); LDH LACTATE DEHYDROGENASE 272 U/L (84-246); URIC ACID 5.1 MG/DL (2.6-6.0)
[2020-06-25] MEDS ORDERED: EPIDURAL/PCA KEYS XX PRN (22:30)
[2020-06-25] MEDS ORDERED: ONDANSETRON 4MG/2ML VIAL IV PRN (22:30)
[2020-06-25] MEDS ORDERED: diphenhydrAMINE 50MG/ML VIAL (J1200) IV PRN (22:30)
[2020-06-25] MEDS ORDERED: FENTANYL/ROPIVACAINE/NACL BAG 100 ML EPIDURAL SCH (22:30)
[2020-06-25] MEDS ORDERED: ePHEDrine SULFATE 25 MG/5 ML(5MG/ML) SYRINGE IV PRN (22:30)
[2020-06-25] MEDS ORDERED: REFRIGERATOR IV KEYS XX PRN (22:30)
[2020-06-25] MEDS ORDERED: LACTATED RINGER'S 1000 ML IV PRN (22:30)
[2020-06-25] MEDS ORDERED: NALOXONE INJ 0.4MG/1ML VIAL (J2310 PER 1MG) IV PRN (22:30)
[2020-06-25] MEDS ORDERED: EPIDURAL COMMENT XX SCH (22:30)
[2020-06-26] VITALS (14 sets, daily range): BP systolic 128–153; BP diastolic 64–105
[2020-06-26] MEDS ORDERED: PENICILLIN G POTASSIUM IV 2.5 MU in IV 1 EA IV SCH (01:25)
[2020-06-26] MEDS ORDERED: OXYTOCIN DRIP 30 UNITS in IV 1 EA IV SCH (02:05)
[2020-06-26] MEDS ORDERED: DOCUSATE SODIUM 100MG CAPSULE PO PRN (02:15)
[2020-06-26] MEDS ORDERED: MEASLES,MUMPS,RUBELLA VACCINE INJ (MMR-II) (90707) SC SCH (02:15)
[2020-06-26] MEDS ORDERED: BENZOCAINE 20% HEMORRHOIDAL OINTMENT 28GM TUBE TOP PRN (02:15)
[2020-06-26] MEDS ORDERED: RHOGAM 300 MCG (1500 IU) INJ (J2790) IM SCH (02:15)
[2020-06-26] MEDS ORDERED: IBUPROFEN 600MG TAB PO PRN (02:15)
[2020-06-26] MEDS ORDERED: ACETAMINOPHEN TAB 650MG DOSE (2X325MG) PO PRN (02:15)
[2020-06-26] MEDS ORDERED: ACETAMINOPHEN 500 MG TAB PO PRN (02:15)
--- NOTE | 2020-06-26 07:35 | DN ---
DELIVERY NOTE DATE OF DELIVERY: 06/26/2020 TIME OF : 0142 GENDER: Female APGARS: 8 and 9. LACERATIONS: First-degree midline. ANESTHESIA: Epidural. ESTIMATED BLOOD LOSS: 350 mL. COUNTS: Correct and verified. DESCRIPTION OF DELIVERY: Peewee is a 24-year-old 3, para 1-0-2-1 now who was admitted to labor and delivery in active labor. She did utilize an epidural for her labor coping. She had assisted rupture of membranes for a small amount of clear odorless fluid at 0043, and she was also completely dilated at that time. We did employ approximately 40 minutes of passive descent and then, she pushed to a normal spontaneous vaginal delivery of a live female in right occiput anterior (SUSAN) position with restitution to right occiput transverse (ROT) position at 0142. There was no nuchal cord. There was meconium stain fluid at the time of delivery. The 's mouth and nares were bulb suctioned. She was then placed on the maternal abdomen for bonding, and she was crying and active. The cord was clamped x2 once pulsations ceased and cut by the father of the baby under my direction. Spontaneous expulsion of an intact placenta with a three-vessel cord by Sanchez mechanism was at 0150. Uterine hemostasis achieved with IV Pitocin rapid infusion and uterine fundal massage. Estimated blood loss 350 mL. The perineum and vagina were inspected noted to have a first-degree midline laceration. The laceration was repaired with 3-0 Vicryl Rapide in the usual fashion. The female weight of 2620 grams (5 pounds 12 ounces). Apgars 8 and 9. Mom is going breastfeed, and the family have named their daughter Ree. At the close of delivery lap counts, needle counts, and instrument counts were correct and verified.
[2020-06-26] MEDS: PRENATAL VITAMINS CHEWABLE TABLET PO SCH (09:39)
[2020-06-26] MEDS: IBUPROFEN 800 MG TAB PO PRN (09:40)
--- NOTE | 2020-06-26 13:40 | HPE ---
HISTORY AND PHYSICAL DATE OF ADMISSION: 06/25/2020 SUBJECTIVE: Peewee is a 24-year-old, 3, para 0-0-2-0, at 37 and 3/7 weeks gestation, EDC of 07/13/2020 based on last menstrual period and confirmed by first trimester ultrasound. She presents to Labor and Delivery today with report of contractions that started at approximately 0500 and have continuously gotten closer together and more uncomfortable throughout the day. She reports the contractions every three minutes upon arrival to labor and delivery. She reports some scant bloody show early in the day but none throughout the rest of the day. She denies leakage of fluid. The fetus has been active. [facility] in the first trimester. The course was complicated by rubella susceptible, obesity. OBSTETRIC HISTORY: In October,, elective termination of , March,, spontaneous miscarriage. OBSTETRIC LABS: A negative, antibody screen negative, syphilis negative. Gonorrhea and Chlamydia negative. Hepatitis B surface antigen negative. Hep C antibody nonreactive. HIV nonreactive. Rubella susceptible. Urine culture and sensitivity no growth. Gestational diabetic screening 111 and GBS positive. PAST MEDICAL HISTORY: 1. Eczema. 2. Pancreatitis. 3. Cellulitis. PAST SURGICAL HISTORY: None. FAMILY HISTORY: Colitis, pancreatitis, heart disease, breast cancer. SOCIAL HISTORY: The patient is single. However, the father of baby is at bedside. She is a nonsmoker, denies alcohol and drug use. No history of sexually transmitted infections and denies history of abuse, physical, sexual and emotional. ALLERGIES: BACTRIM. CURRENT MEDICATIONS: vitamin. OBJECTIVE: Temp 98.7, pulse 103, respirations 20, BP 156/99. She is uncomfortable with her contractions, tense and crying. heart rate is 130 with moderate variability, positive accelerations, negative decelerations. Contractions are every 2 to 6 minutes and they do palpate moderate. Her abdomen is gravid, cephalic presentation. Estimated weight 6-1/2 lb. Sterile vaginal exam: 4 cm, 90% effaced, -2 station, mid-position, small, scant show. ASSESSMENT: Intrauterine at 37-3/7 weeks. heart rate category 1, active labor at term. PLAN: Admit the patient to labor and delivery, routine labs, with the addition of a preeclamptic profile and a spot urine, out of bed ad efren, clear liquid diet. The patient desires an epidural, IV fluid bolus, start GBS prophylaxis. The patient has been verbally consented for emergency surgery and blood products if they are necessary. Will likely start Pitocin to augment her labor once she has an epidural. I do anticipate labor progress and a vaginal delivery.
[2020-06-27 05:53] VITALS: BP 130/86
[2020-06-27] MEDS ORDERED: BOOSTRIX/ADACEL VACCINE (DIPHTH/PERTUSS/ACELL/TETANUS) 0.5ML SYR IM ONE (09:00)
[2020-06-27] MEDS: PRENATAL VITAMINS CHEWABLE TABLET PO SCH (09:08)
[2020-06-27] MEDS: IBUPROFEN 800 MG TAB PO PRN (09:08)
== END 2020-06-27 13:20 | disposition home or self-care (01) | DRG 560 ==
LOC: M LDO 19:22 → M LDI 20:19 → M OBS 06-26 03:57
PROVIDERS: ADMIT Advanced Practice Midwife; ATTEND Advanced Practice Midwife
PROC: 10E0XZZ Delivery of Products of Conception, External Approach (ICD-10-PCS; principal; 2020-06-26)
PROC: 10907ZC Drainage of Amniotic Fluid, Therapeutic from Products of Conception, Via Natural or Artificial Opening (ICD-10-PCS; 2020-06-26)
PROC: 0HQ9XZZ Repair Perineum Skin, External Approach (ICD-10-PCS; 2020-06-26)
DX: O99.824 Streptococcus B carrier state complicating childbirth (principal); Z3A.37 37 weeks gestation of pregnancy; Z37.0 Single live birth; O77.0 Labor and delivery complicated by meconium in amniotic fluid; O70.0 First degree perineal laceration during delivery

== ENCOUNTER → 2020-09-30 | Outpatient (REF) | payer OTHER | LOC: M SFHCWAGY 12:40 | PROVIDERS: ATTEND Advanced Practice Midwife | DX: Z12.4 Encounter for screening for malignant neoplasm of cervix (principal) ==

== ENCOUNTER → 2024-09-17 | Outpatient (REF) | payer OTHER ==
[2024-09-17 18:23] LABS: BASO % 0.1 % (0.0-1.0); EOS # 0.1 10^3/uL (0.0-0.5); EOS % 0.7 % (0.0-3.0); HEMATOCRIT 43.2 % (36.0-47.0); HEMOGLOBIN 14.6 g/dl (12.0-15.5); LYMPH # 1.6 10^3/uL (1.5-5.0); LYMPH % 21.7 % (24.0-44.0); MEAN CORPUSCULAR HEMOGLOBIN 31.1 pg (27.0-33.0); MEAN CORPUSCULAR HGB CONC 33.8 g/dl (32.0-36.5); MEAN CORPUSCULAR VOLUME 92.1 fl (80.0-96.0); MONO # 0.4 10^3/uL (0.0-0.8); MONO % 4.9 % (2.0-8.0); NEUTROPHILS # 5.5 10^3/uL (1.5-8.5); NEUTROPHILS % 72.3 % (36.0-66.0); PLATELET COUNT, AUTOMATED 203 10^3/uL (150-450); RED BLOOD COUNT 4.69 10^6/uL (4.00-5.40); WHITE BLOOD COUNT 7.6 10^3/uL (4.0-10.0)
[2024-09-17 18:51] LABS: FREE T4 1.16 NG/DL (0.89-1.76); THYROID STIMULATING HORMONE 1.826 uIU/ML (0.55-4.78)
[2024-09-17 18:52] LABS: ALBUMIN 4.1 G/DL (3.2-5.2); ALKALINE PHOSPHATASE 75 U/L (35-104); ALT/SGPT 24 U/L (7.0-40); AST/SGOT 18 U/L (<34); BILIRUBIN,TOTAL 0.8 MG/DL (0.3-1.2); BLOOD UREA NITROGEN 12 MG/DL (9-23); CALCIUM LEVEL 9.1 MG/DL (8.5-10.1); CARBON DIOXIDE LEVEL 28 MMOL/L (20-31); CHLORIDE LEVEL 103 MMOL/L (98-107); CREATININE FOR GFR 0.69 MG/DL (0.55-1.30); GLOMERULAR FILTRATION RATE > 90.0 (>60); GLUCOSE, FASTING 107 MG/DL (60-100); IRON (FE) 125 UG/DL (50-170); MAGNESIUM LEVEL 1.9 MG/DL (1.8-2.4); POTASSIUM SERUM 3.9 MMOL/L (3.5-5.1); SODIUM LEVEL 140 MMOL/L (136-145)
[2024-09-17 18:55] LABS: TOTAL T3 113.3 NG/DL (60.0-181.0)
== END ==
LOC: M SFHCCLAY 13:24
PROVIDERS: ATTEND Family Medicine
DX: R53.83 Other fatigue (principal); R07.89 Other chest pain; I49.3 Ventricular premature depolarization

== ENCOUNTER → 2024-09-17 | Outpatient (CLI) | payer OTHER | LOC: M CLY 13:40 | PROVIDERS: ATTEND Family Medicine | DX: R53.83 Other fatigue (principal); R07.89 Other chest pain; I49.3 Ventricular premature depolarization ==

== ENCOUNTER → 2025-03-05 | Outpatient (REF) | payer OTHER ==
[2025-03-05 15:44] LABS: Trichomonas vaginalis (AMP) NOT DETECTED (NEGATIVE)
[2025-03-05 16:07] LABS: GC DNA AMPLIFICATION NEGATIVE (NEGATIVE)
[2025-03-07 15:48] LABS: HPV APTIMA Not Detected (Not Detected)
== END ==
LOC: M SFHCCLAY 07:40
PROVIDERS: ATTEND Nurse Practitioner Family
DX: Z12.4 Encounter for screening for malignant neoplasm of cervix (principal); R87.610 Atypical squamous cells of undetermined significance on cytologic smear of cervix (ASC-US)